=== PATIENT | female | born 1960 | race African-American/Black ===

== ENCOUNTER 2018-11-25 12:08 | Inpatient (IN) ==
[2018-11-25] MEDS ORDERED: DILAUDID IV ONE (16:15)
[2018-11-25 16:22] LABS: EOS# 0.01 X1000 (0.0-0.7); EOS% 0.1 % (0.0-10.0); HEMOGLOBIN 11.2 g/dL (12.0-16.0); LYMPH# 0.45 X1000 (1.2-3.4); LYMPH% 5.8 % (20.5-51.1); MCH 32.9 PG (27-31); MCHC 31.1 g/dL (33-37); MCV 105.9 FL (81-99); MONO# 0.44 X1000 (0.11-0.59); MONO% 5.7 % (1.7-9.3); MPV 8.8 FL (7.4-10.4); NEUT# 6.82 X1000 (1.4-6.5); NEUT% 88.4 % (42.2-75.2); PLT 185 X1000 (130-400); RDW 17.9 % (11.5-14.5); WBC 7.72 X1000 (4.8-10.8)
[2018-11-25 16:26] LABS: INR 0.94; PROTIME 13.3 Seconds (11.0-16.0)
--- NOTE | 2018-11-25 16:30 | EKG Report ---
Test Performed on : 11/25/2018 4:24:44 PM Test Reason : chest pain Blood Pressure : / mmHG Vent. Rate : 083 BPM Atrial Rate : 083 BPM P-R Int : 154 ms QRS Dur : 064 ms QT Int : 338 ms P-R-T Axes : 053 -05 005 degrees QTc Int : 397 ms Normal sinus rhythm. ST & T wave abnormality, consider anterior ischemia Abnormal ECG When compared with ECG of 04-OCT-2018 10:11, (Unconfirmed) No significant change was found Unconfirmed Result
[2018-11-25 16:31] LABS: AGAP 10; ALB/GLOB RATIO 1.1; ALBUMIN 3.8 g/dL (3.5-5.0); ALKALINE PHOSPHATASE 132 U/L (32-104); BUN 10 mg/dL (8-22); CHLORIDE 93 mmol/L (98-107); COSMO 263; CREATININE 0.4 mg/dL (0.5-0.9); ESTIMATED GFR > 60; GLUCOSE 88 mg/dL (70-104); GOT 40 U/L (10-30); GPT 225 U/L (10-36); MAGNESIUM 1.6 mg/dL (1.5-2.7); POTASSIUM 4.2 mmol/L (3.5-5.1); SODIUM 132 mmol/L (136-145); TCO2 29 mmol/L (25-35); TOTAL BILIRUBIN 0.58 mg/dL (0.20-1.00); TOTAL PROTEIN 7.4 g/dL (6.3-8.3)
[2018-11-25] MEDS ORDERED: NARCAN IV PRN (16:31)
[2018-11-25] MEDS ORDERED: DILAUDID PCA VIAL IV PRN (16:31)
[2018-11-25 16:32] LABS: CK PROFILE 285 U/L (24-173)
[2018-11-25] MEDS ORDERED: DILAUDID-HP 30 MG in NS 27 ML IV PRN ×2 (16:37→18:15)
[2018-11-25] MEDS ORDERED: LR 1,000 ML IV SCH (16:45)
--- NOTE | 2018-11-25 16:46 | Diag Imaging Result Doc PS360 ---
EXAM: CHEST-PORTABLE INDICATION: chest pain TECHNIQUE: One view COMPARISON: 10/04/2018 FINDINGS: Right chest port is in stable position. There is a fairly large left pleural fluid collection that was also seen on the previous study. It has probably increased slightly in size. There is atelectasis and/or infiltrate at the left lung base. The right lung is clear. Cardiac silhouette is unremarkable. IMPRESSION: Fairly large left pleural effusion with adjacent atelectasis and/or infiltrate that appears increased slightly in size during the interval. Electronically signed by Ricky Chavez 11/25/2018 4:43 PM
[2018-11-25 16:49] LABS: CK INDEX 1.2 (0.0-2.5); CK-MB 3.33 ng/mL (0.0-5.0)
[2018-11-25] MEDS ORDERED: LOVENOX SUBQ SCH (17:00)
[2018-11-25 17:01] LABS: BANDS 1 % (0-1); LYMPHS 6 % (21-51); MONO 6 % (1-9); SEGS 86 % (42-75)
[2018-11-25 17:02] LABS: ANISOCYTOSIS 2+
--- NOTE | 2018-11-25 17:13 | HISTORY AND PHYSICAL ---
PRIMARY CARE PROVIDER: None. ONCOLOGIST: Sofiya Page MD CHIEF COMPLAINT: Back and flank pain. HISTORY OF PRESENT ILLNESS: Ms. Lee is a 58-year-old female with a history of metastatic breast cancer with lung and brain involvement who recently completed whole brain radiation this morning. She comes to us directly from Dr. Page's office for intractable pain, she is experiencing left flank, left anterior chest, and left-sided back pain as well. She denies any cough. No fever. She is having some mild epigastric discomfort as well. She has not had any vomiting or diarrhea. She is complaining of left leg swelling but no pain. She is in obvious distress so we are going to give her 2 mg of Dilaudid IV now and start a MINIBUS DRIVER pump while diagnostics are pending. PAST MEDICAL HISTORY: 1. Metastatic breast cancer with lung and brain involvement, status post whole brain radiation this morning. 2. Hypertension. 3. Diabetes mellitus. 4. Chronic pain. SURGICAL HISTORY: She has had a hysterectomy and bilateral mastectomy. SOCIAL HISTORY: No tobacco, alcohol, or drug use. She is . Her is at the bedside. FAMILY HISTORY: Noncontributory. REVIEW OF SYSTEMS: A 14 point review of systems was obtained and found to be negative with the exception of the HPI. HOME MEDICATIONS: Home medications are yet to be compiled. ALLERGIES: No known drug allergies. PHYSICAL EXAMINATION: VITAL SIGNS: Blood pressure is 118/65. Heart rate is not recorded. GENERAL: This is a well-developed, well-nourished, female lying in a hospital bed in [id number] distress. NEUROLOGIC: She is awake, alert, and oriented. She follows commands without focal deficits. HEENT: The head is atraumatic and normocephalic. Her pupils are equal, round, and reactive to light. Oral mucosa is dry. NECK: Trachea is midline. There is no JVD. CHEST: Clear to auscultation with equal lung excursion bilaterally. CV: Regular rate and rhythm. S1, S2 is noted. No appreciable murmurs. GI: Mild epigastric tenderness to palpation but overall her abdomen is soft and nondistended. Bowel sounds are hypoactive. EXTREMITIES: Left lower extremity with trace edema. Both lower extremities with palpable pulses. DIAGNOSTIC DATA: Pending. ASSESSMENT AND PLAN: 1. Intractable chest and back pain: Likely secondary to malignancy, however, we will need to rule out cardiac disease or pulmonary disease as well. We will check cardiac enzymes and a full set of labs, EKG, chest x-ray, and, with her symptoms of chest pain and left lower leg swelling we will need to rule out the possibility of pulmonary thromboembolism. We have ordered a D-dimer and lower extremity ultrasound. We will re-evaluate after labs have returned and consider CTA of the chest to rule out PE. An echocardiogram was done in August and EF was 59%. We are going to start a MINIBUS DRIVER pump with Dilaudid and give her 2 mg IV now. 2. Hypertension: We will continue appropriate medications once compiled. 3. Diabetes mellitus: We will check a hemoglobin A1c and add pattern sugar sliding scale insulin. 4. Deep vein thrombosis prophylaxis with Lovenox. 5. Metastatic breast cancer: Aware. Dr. Page has been consulted. Further recommendations to follow. Dictated by DEVON Lopez for Patrice Reddy MD cc: DEVON Lopez MD [facility]
[2018-11-25] MEDS ORDERED: ZOFRAN PO PRN (18:07)
[2018-11-25] MEDS ORDERED: EMLA CREAM TOP PRN (18:07)
[2018-11-25 18:12] LABS: CK INDEX 1.1 (0.0-2.5); CK-MB 2.98 ng/mL (0.0-5.0)
--- NOTE | 2018-11-25 18:19 | HISTORY AND PHYSICAL ---
ADDENDUM ON THE HISTORY AND PHYSICAL: HISTORY: The patient seen and examined by me [id number]. All the laboratory, vital signs were reviewed, as well as images. Chest x-ray showed a large left pleural effusion with atelectasis and/or infiltrate that appears increased slightly in size during the interval. The right lung is clear. Cardiac silhouette is unremarkable. This patient is complaining of pain especially on the left side of the chest. LABS: Laboratory showed some anemia with hemoglobin of 11.2, platelet count 185. D-dimer is elevated at 3.53. Sodium level 132, potassium 4.2, chloride 93, bicarbonate 28, BUN is 10, creatinine 0.4. She does have elevated LFTs with an AST of 40, ALT 225 and alkaline phosphatase 132 with a CK level of 285, which is elevated compared with 2 months ago. I am not quite sure if this is related to chemotherapy or any other treatment. There is not an official report, but it looks like she has a DVT on the left lower extremity. I will try to talk to Dr. Sofiya Page, which is her instrumentation controls engineer-oncologist, to see if we are going to be able to start anticoagulation on this patient. She has no other complaints than left sided chest pain and left lower extremity discomfort/pain at the level of the calf. PHYSICAL EXAM: CHEST/LUNGS: Showed some crepitus at the bases bilaterally mostly on the left side. Bilateral mastectomy. EXTREMITIES: A little bit of swelling at the level of the left lower extremity, normal right lower extremity. ABDOMEN: Soft, nontender, nondistended. No hepatosplenomegaly. NEUROLOGICAL: The patient is alert and oriented x3. No focal deficits. PLAN: The plan is to control the pain and this is why she has been admitted. D-dimer is elevated, probably likely this patient has a DVT and probably a PE as well. Since she has a positive Doppler venous ultrasound at the level of the lower extremities, I will hold the CT angiogram since the treatment is going to be basically the same. She has been placed on a URBAN DESIGNER pump and some of her home medications. I agree with the rest of the nurse practitioner's assessment and plan. cc: Patrice Reddy MD
[2018-11-25] MEDS: NEURONTIN PO SCH (22:08)
[2018-11-25] MEDS: LOVENOX SUBQ SCH (22:09)
[2018-11-26 02:24] LABS: CK INDEX 0.6 (0.0-2.5); CK-MB 2.12 ng/mL (0.0-5.0)
[2018-11-26 07:32] LABS: EOS# 0.05 X1000 (0.0-0.7); EOS% 0.7 % (0.0-10.0); HEMATOCRIT 35.1 % (37.0-47.0); IMM GRAN# 0.03 X1000 (0.0-0.04); IMM GRAN% 0.4 % (0.0-0.5); LYMPH# 0.25 X1000 (1.2-3.4); LYMPH% 3.7 % (20.5-51.1); MCH 32.4 PG (27-31); MCHC 31.3 g/dL (33-37); MCV 103.5 FL (81-99); MONO# 0.43 X1000 (0.11-0.59); MONO% 6.3 % (1.7-9.3); NEUT# 6.02 X1000 (1.4-6.5); NEUT% 88.9 % (42.2-75.2); PLT 194 X1000 (130-400); RBC 3.39 XMIL (4.2-5.4); RDW 18.1 % (11.5-14.5); WBC 6.78 X1000 (4.8-10.8)
[2018-11-26] MEDS: LOVENOX SUBQ SCH ×2 (08:18→21:05)
[2018-11-26] MEDS: NORVASC PO SCH (08:18)
[2018-11-26 08:20] LABS: ESTIMATED GFR > 60
[2018-11-26 08:22] LABS: AGAP 11; ALBUMIN 3.2 g/dL (3.5-5.0); ALKALINE PHOSPHATASE 125 U/L (32-104); BUN 10 mg/dL (8-22); CHLORIDE 88 mmol/L (98-107); COSMO 252; CREATININE 0.4 mg/dL (0.5-0.9); GLUCOSE 92 mg/dL (70-104); GOT 49 U/L (10-30); GPT 299 U/L (10-36); POTASSIUM 4.2 mmol/L (3.5-5.1); SODIUM 126 mmol/L (136-145); TCO2 27 mmol/L (25-35); TOTAL PROTEIN 6.5 g/dL (6.3-8.3)
[2018-11-26 08:36] LABS: HEMOGLOBIN A1C 5.4 % (4.8-6.0)
[2018-11-26] MEDS: BIOTIN PO SCH (08:58)
[2018-11-26] MEDS ORDERED: DILAUDID-HP 30 MG in NS 27 ML IV PRN ×2 (09:39→10:33)
[2018-11-26 10:06] LABS: CK INDEX 0.3 (0.0-2.5); CK-MB 1.47 ng/mL (0.0-5.0)
[2018-11-26] MEDS: MS CONTIN PO SCH ×4 (12:38→21:07)
--- NOTE | 2018-11-26 13:01 | PROGRESS NOTE ---
DATE: 11/26/2018 SUBJECTIVE: At this moment, this patient is sleeping. As per the who is at the bedside, she has spent most of the night awake because of the pain. She has been evaluated by Hematology/Oncology Department, who recommended to do an ultrasound-guided thoracentesis; that will be performed in the morning tomorrow because she received a dose of Lovenox today. Hematology/Oncology Department added some medication by mouth as well, which I agree. OBJECTIVE: Vital Signs: Temperature 99.2 degrees, pulse 92, respiratory rate 18, blood pressure 105/69, oxygen saturation 97% on room air. HEENT: Head normocephalic. No trauma. PERRLA. Neck: Supple. No JVD. No masses. Central trachea. Chest: Decreased breath sounds on the left side with some crackles. Crepitus at the bases bilaterally. Abdomen: Soft, nontender, nondistended. No hepatosplenomegaly. Extremities: Left lower extremity 1+ to 2+. No clubbing. No cyanosis. Neurological examination: At this moment, this patient is sleeping. As per the , no changes compared with yesterday. LABORATORY: WBC 6.7, hemoglobin 11, hematocrit 35.1, platelets 194. Sodium 126, potassium 4.2, chloride 188, bicarbonate 27. BUN 10, creatinine 0.4, glucose 92, calcium 8. AST 49, ALT 229, alkaline phosphatase 125. CK level 442. Troponins negative x3. Albumin 3.2. Folate 6.9. ASSESSMENT AND PLAN: 1. Intractable chest pain and back pain, probably secondary to malignancy and/or pulmonary embolism. She has been placed on a VETERANS CONTACT REPRESENTATIVE pump. We will continue with the same management. She seems to be doing better. 2. Left lower extremity deep vein thrombosis. We will continue with Lovenox twice a day. Will hold the Lovenox tomorrow morning because we will do a thoracentesis. 3. Left-sided pulmonary edema. It is scheduled to get a thoracentesis done tomorrow morning. We will monitor. 4. Hypertension, stable. 5. Type 2 diabetes. Hemoglobin A1c is 5.4. We will continue with same management. 6. Elevated liver function tests. I am not quite sure why the liver function tests are elevated. I am not sure if this patient has metastasis to the liver and/or is an adverse reaction to recent chemotherapy. 7. Hyponatremia. I have switched the intravenous fluids to normal saline with D 5. As per the , this patient is not eating too much, almost nothing. 8. Folic acid deficiency. I have placed this patient on folic acid. 9. Metastatic breast cancer. It looks like she has metastases also to the brain. Her last radiotherapy was done yesterday. cc: Patrice Reddy MD
[2018-11-26] MEDS: DILAUDID PO PRN (14:11)
[2018-11-26] MEDS ORDERED: TYLENOL PO PRN (15:19)
[2018-11-26] MEDS: NEURONTIN PO SCH (21:07)
--- NOTE | 2018-11-26 21:37 | Extremity Venous Study ---
PROCEDURE NAME: Venous U/S Left Leg - 11/25/2018 STUDY: Left lower extremity venous duplex study. REFERRING PHYSICIAN: Patrice Reddy MD. READING PHYSICIAN: Calvin Gleason MD. SOIL TECHNICIAN: Lay Kingston RVT. INDICATION: Left leg swelling and history of metastatic breast cancer. FINDINGS: The left common femoral, deep femoral, superficial femoral, greater saphenous, popliteal, and posterior tibial veins were imaged. They are compressible and patent without thrombus. However, the left peroneal vein is thrombosed from the proximal to distal calf. INTERPRETATION: Acute DVT of the left peroneal vein. cc: MD Albert Mcintosh CRNP
[2018-11-27] MEDS: LR 1,000 ML ONE ×2 (00:13→00:14)
--- NOTE | 2018-11-27 07:44 | Diag Imaging Result Doc PS360 ---
EXAM: US CHEST W/O MEDIASTINUM(LTD) HISTORY: Left pleural effusion TECHNIQUE: Left chest ultrasound COMPARISON: 05/06/2018 FINDINGS: Previously there was a large left-sided pleural effusion. There is only a tiny loculated fluid collection on the current exam. IMPRESSION: Thoracentesis not performed due to the small size of the loculated left fluid collection Electronically signed by Prince Rodriguez 11/27/2018 7:42 AM
[2018-11-27] MEDS: FOLIC ACID PO SCH (08:32)
[2018-11-27] MEDS: MS CONTIN PO SCH ×8 (08:32→18:25)
[2018-11-27] MEDS: NORVASC PO SCH (08:32)
[2018-11-27] MEDS: LOVENOX SUBQ SCH ×2 (08:33→20:09)
[2018-11-27] MEDS: BIOTIN PO SCH (08:33)
[2018-11-27 09:43] LABS: ESTIMATED GFR > 60
[2018-11-27 09:49] LABS: AGAP 11; ALKALINE PHOSPHATASE 137 U/L (32-104); BUN 7 mg/dL (8-22); CALCIUM 8.5 mg/dL (8.8-10.2); CHLORIDE 85 mmol/L (98-107); COSMO 247; CREATININE 0.5 mg/dL (0.5-0.9); GLUCOSE 82 mg/dL (70-104); GOT 65 U/L (10-30); GPT 480 U/L (10-36); MAGNESIUM 1.6 mg/dL (1.5-2.7); POTASSIUM 4.3 mmol/L (3.5-5.1); SODIUM 124 mmol/L (136-145); TCO2 28 mmol/L (25-35); TOTAL BILIRUBIN 1.98 mg/dL (0.20-1.00); TOTAL PROTEIN 5.9 g/dL (6.3-8.3)
[2018-11-27 10:25] LABS: EOS# 0.01 X1000 (0.0-0.7); EOS% 0.1 % (0.0-10.0); HEMATOCRIT 35.4 % (37.0-47.0); HEMOGLOBIN 11.5 g/dL (12.0-16.0); IMM GRAN# 0.02 X1000 (0.0-0.04); IMM GRAN% 0.2 % (0.0-0.5); LYMPH# 0.21 X1000 (1.2-3.4); LYMPH% 2.3 % (20.5-51.1); MCHC 32.5 g/dL (33-37); MCV 101.7 FL (81-99); MONO# 0.36 X1000 (0.11-0.59); MONO% 3.9 % (1.7-9.3); MPV 8.9 FL (7.4-10.4); NEUT# 8.55 X1000 (1.4-6.5); NEUT% 93.5 % (42.2-75.2); PLT 184 X1000 (130-400); RBC 3.48 XMIL (4.2-5.4); RDW 17.4 % (11.5-14.5); WBC 9.15 X1000 (4.8-10.8)
[2018-11-27 11:27] LABS: LYMPHS 4 % (21-51); MONO 2 % (1-9); SEGS 94 % (42-75)
--- NOTE | 2018-11-27 16:18 | PROGRESS NOTE ---
DATE: 11/27/2018 SUBJECTIVE: This patient seems to be doing a little bit better, the pain is better controlled, she is still hyponatremic and she is still having elevated LFTs. Since this patient is full code I will ask gastroenterology department to evaluate this patient even though the LFTs are likely related to the disease progression, it looks like Hematology Oncology Department started to recommend hospice for this patient, I will continue with pain control and monitoring this patient closely. OBJECTIVE: Temperature 100.7, pulse 123, respiratory rate 18, blood pressure 121/58, oxygen saturation 94 on room air.HEENT: Head normocephalic. No trauma. PERRLA. Neck: Supple. No JVD. No masses. Central trachea. Chest: Decreased breath sounds on the left side with some crackles, crepitus at the bases bilaterally. Abdomen: Soft, nontender, nondistended. Extremities: Left lower extremity 1+ edema. No clubbing. No cyanosis. Neurologic: The patient is alert, she is oriented x3. LABORATORY: WBC 9.1, hemoglobin 11.5, hematocrit 35.4, platelets 184,000, sodium 124, potassium 4.3, chloride 85, bicarbonate 28, BUN 7, creatinine 0.5, glucose 82, calcium 8.5, magnesium 1.6, AST 65, ALT 480, alkaline phosphatase 137, albumin 3. ASSESSMENT AND PLAN: 1. Intractable pain likely secondary to malignancy, mostly on her chest on the left side, she has been placed on a TEST TUBE MAKER pump and also Hematology/Oncology Department has recommended some p.o. treatment for this, she seems to be doing better. 2. Left lower extremity deep vein thrombosis. Continue with anticoagulation. 3. Left-sided pulmonary edema, she has been scheduled to get a thoracentesis today but since this is a small loculated fluid collection the thoracentesis was not performed. 4. Hypertension stable. 5. Type 2 diabetes. Continue with same management. 6. Elevated liver function tests likely secondary to disease progression. 7. Hyponatremia, this is probably secondary to syndrome of inappropriate antidiuretic hormone secretion, will continue with same management. 8. Folic acid deficiency. Continue to replace. 9. Metastatic breast cancer, it looks like she has metastasis to the brain. Last radiotherapy was done a couple days ago. Hematology/Oncology on board. cc: Patrice Reddy MD
--- NOTE | 2018-11-27 17:39 | Diag Imaging Result Doc PS360 ---
US ABDOMEN-COMPLETE - 11/27/2018 INDICATION: abnormal LFTs COMPARISON: PET scan 07/08/2018 FINDINGS: The exam is challenging due to extensive bowel gas. The liver is grossly normal. There is some sludge and several small stones in the gallbladder. No gallbladder inflammation. Common bile duct measures 4 mm. No biliary dilation. The pancreas is obscured. The spleen and both kidneys are normal. Aorta, IVC, and main portal vein are patent. No significant free fluid. IMPRESSION: Sludge and small gallstones in the gallbladder. Electronically signed by Basil Coyle 11/27/2018 5:36 PM
--- NOTE | 2018-11-27 21:14 | GASTROENTEROLOGY CONSULTATION ---
DATE: 11/27/2018 REASON FOR CONSULTATION: Abnormal LFTs. HISTORY OF PRESENT ILLNESS: Ms. Kiya Lee is a 58-year-old woman with a past medical history significant for metastatic breast cancer with brain and lung involvement who was admitted with intractable left flank, chest and upper quadrant pain. GI was consulted for worsening abnormal LFTs. The patient reports having received 2 cycles of Xeloda and Ixempra. Her last infusion was in September 2018. This was discontinued secondary to diagnosis of brain metastases for which she is undergoing whole-brain radiation and receiving steroids. History is primarily obtained from the chart and the patient's , given the patient is lethargic while being on a SOURCING MANAGER pump. Per report, she has not been on any recent antibiotics. Does not take any herbals or supplements. Has no history of liver disease and has not been complaining of any right upper quadrant pain. No history of jaundice, abdominal distention, or hepatic encephalopathy. Reviewing her labs, she has had a rising AST and ALT over the last 2 months. She has no history of alcohol use. PAST MEDICAL HISTORY: Metastatic breast cancer with brain and lung involvement. Hypertension, diabetes, chronic pain, recent diagnosis of DVT. PAST SURGICAL HISTORY: Hysterectomy, bilateral mastectomy. SOCIAL HISTORY: No alcohol, smoking or drug use. She is . FAMILY HISTORY: No family history of liver disease or cirrhosis. MEDICATIONS: Bisoprolol/hydrochlorothiazide combination. Norvasc. Metformin, gabapentin, Zofran, morphine extended release, biotin, morphine immediate release. No Tylenol. ALLERGIES: No known drug allergies. REVIEW OF SYSTEMS: Unable to obtain given patient's lethargy. PHYSICAL EXAMINATION: Vital Signs: Temperature 100.7 currently. Pulse 123, respiratory rate 18, blood pressure 121/58, O2 saturation of 94% on room air. Generally: Patient is lethargic, arousable, but not conversant. HEENT: Sclerae anicteric. Moist mucous membranes. Neck: No JVD. No lymphadenopathy. Cardiac: Tachycardic, regular. No murmurs. Lungs: Clear to auscultation bilaterally. Abdomen: Soft, nondistended. The patient has some tenderness in the left flank and upper quadrant. No right upper quadrant pain. Bowel sounds are present. No ascites. Extremities: No clubbing, cyanosis, or edema. Neurologic: The patient is moving all extremities spontaneously. LABS: White count of 9.15, hemoglobin 11.5, MCV is 101.7, platelets of 184,000, 94% neutrophils. Sodium of 124, potassium of 4.3, chloride of 85, BUN is 7, creatinine 0.5, glucose is 82. Calcium 8.5, total bilirubin of 1.98, AST 65, ALT of 480, alkaline phosphatase of 137. CK of 442. Troponin negative x2. Total protein of 5.9, albumin 3.0. Folate is 6.9, vitamin B12 of 730. PET scan in August did not show any evidence of hepatic lesions. Chest x-ray on 11/25 showed fairly large left pleural effusion with adjacent atelectasis and/or infiltrate that appears increased slightly in size during the interval from September. The patient has acute DVT in the left peroneal vein seen on Doppler ultrasound. Chest ultrasound shows a tiny, loculated fluid collection on the left side. Thoracentesis could not be performed due to the small size. Blood cultures x2 are pending. Urine culture is pending. ASSESSMENT AND PLAN: Ms. Kiya Lee is a 58-year-old woman, with past medical history significant for metastatic breast cancer with brain and lung involvement who has undergone 2 cycles of Xeloda and Ixempra. That was discontinued in September in the setting of recent diagnosis of brain metastasis She has been undergoing whole-brain radiation. She was admitted secondary to uncontrolled acute on chronic left upper quadrant chest wall and flank pain. Gastroenterology was consulted for worsening liver function tests that appears to be hepatocellular pattern with ALT greater than AST. She does have some mildly increasing alkaline phosphatase and total bilirubin. No recent abdominal imaging. PET scan in August did not show any evidence of hepatic metastases. Reviewing the literature on Ixempra and Xeloda, there are some rare cases of liver injury, although occurrences are rare. Xeloda typically shows a more cholestatic picture, whereas Ixempra has a more hepatocellular pattern. No occurrences of acute liver failure seem to have been reported with these medications. She has not received any obvious hepatotoxic agents since admission. She has been on steroids, I believe are for her brain mets. # Abnormal LFTs: we will check an acute hepatitis panel, ZURI, antismooth muscle antibody to evaluate for autoimmune hepatitis. This is unlikely Kaushal's or hemochromatosis given new onset. It does appear that her LFTs have been slowly climbing since September and this may represent sort of interval progression since then. I have also ordered an abdominal ultrasound to evaluate for any bilirubin obstruction, liver lesions, gallstones. There is no evidence of acute liver failure here. We will avoid hepatotoxic agents and dose adjust her medications for hepatic dysfunction. Continue to trend her LFTs once daily. # Left upper quadrant pain: I think this is unlikely related to her abnormal LFTs. This has been a chronic issue related to her underlying breast cancer. Will defer management to primary team. # She has significant hyponatremia. She appears to be normal volemic, question SIADH in the setting of possible infection. Patient was febrile this afternoon. Other etiologies include hypovolemic hyponatremia. Defer management to primary team. # Folate deficiency. Recommend repleting with folic acid. # Left pleural effusion. Appears to have a small loculation. Could be source of her underlying fever. Thoracentesis could not be performed given the small volume. # Deep vein thrombosis. She is currently on therapeutic Lovenox. # Metastatic breast cancer. Oncology following Thank you for this consult. We will follow with you. Please call with any questions or concerns. [facility]
[2018-11-27] MEDS: NEURONTIN PO SCH (22:58)
[2018-11-28] MEDS: MS CONTIN PO SCH ×6 (01:33→17:45)
[2018-11-28 07:05] LABS: EOS# 0.06 X1000 (0.0-0.7); EOS% 0.6 % (0.0-10.0); HEMATOCRIT 34.2 % (37.0-47.0); HEMOGLOBIN 11.1 g/dL (12.0-16.0); IMM GRAN# 0.03 X1000 (0.0-0.04); IMM GRAN% 0.3 % (0.0-0.5); LYMPH# 0.29 X1000 (1.2-3.4); LYMPH% 2.8 % (20.5-51.1); MCH 32.9 PG (27-31); MCHC 32.5 g/dL (33-37); MCV 101.5 FL (81-99); MONO# 0.57 X1000 (0.11-0.59); MONO% 5.4 % (1.7-9.3); MPV 8.7 FL (7.4-10.4); NEUT# 9.56 X1000 (1.4-6.5); NEUT% 90.9 % (42.2-75.2); PLT 179 X1000 (130-400); RBC 3.37 XMIL (4.2-5.4); RDW 17.1 % (11.5-14.5); WBC 10.51 X1000 (4.8-10.8)
[2018-11-28 07:17] LABS: LYMPHS 2 % (21-51); MONO 6 % (1-9); SEGS 92 % (42-75)
[2018-11-28 07:19] LABS: AGAP 12; ALB/GLOB RATIO 0.7; ALBUMIN 2.5 g/dL (3.5-5.0); ALKALINE PHOSPHATASE 162 U/L (32-104); BUN 7 mg/dL (8-22); CALCIUM 8.5 mg/dL (8.8-10.2); CHLORIDE 90 mmol/L (98-107); COSMO 252; CREATININE 0.4 mg/dL (0.5-0.9); ESTIMATED GFR > 60; GLUCOSE 80 mg/dL (70-104); GOT 78 U/L (10-30); GPT 519 U/L (10-36); POTASSIUM 4.1 mmol/L (3.5-5.1); SODIUM 127 mmol/L (136-145); TCO2 25 mmol/L (25-35); TOTAL PROTEIN 5.9 g/dL (6.3-8.3)
[2018-11-28] MEDS: FOLIC ACID PO SCH (09:32)
[2018-11-28] MEDS: NORVASC PO SCH (09:32)
[2018-11-28] MEDS: LOVENOX SUBQ SCH ×2 (09:33→21:06)
[2018-11-28] MEDS: MIRALAX PO SCH ×2 (09:37→21:05)
[2018-11-28] MEDS: PROTONIX IV SCH ×2 (09:38→21:06)
[2018-11-28] MEDS: BIOTIN PO SCH (10:57)
[2018-11-28] MEDS: DULCOLAX PR SCH ×2 (14:04→21:06)
--- NOTE | 2018-11-28 14:37 | PROGRESS NOTE ---
DATE: 11/28/2018 SUBJECTIVE: The pain is better controlled. She is still hyponatremic. LFTs are trending up, I had a conversation with the which is at the bedside. It looks like they talk already with Hematology/Oncology Department yesterday, I have consulted hospice care to talk to them. Depending on their decision I will discharge this patient the next 24 to 48 hours. OBJECTIVE: Vital Signs: Temperature 99.6 degrees, pulse 118, respiratory rate 20, blood pressure 97/58, oxygen saturation 94 on room air. HEENT: Head normocephalic. No trauma. PERRLA. Neck: Supple. No JVD. No masses. Central trachea. Chest: Decreased breath sounds on the left side with some crackles, crepitus at the bases bilaterally. Abdomen: Soft, nontender, nondistended. Extremities: 1+ lower extremity edema. No clubbing, no cyanosis. Neurological: The patient is sleepy but arousable, oriented x3. Able to recognize family members at the bedside. LABORATORY: WBC 10.5, hemoglobin 11.1, hematocrit 34.2, platelet 179,000, sodium 127, potassium 4.1, chloride 90, bicarbonate 25, BUN 7, creatinine 0.4, glucose 80, calcium 8.5, bilirubin 2.3, AST 78, ALT 519, alkaline phosphatase 162. ASSESSMENT AND PLAN: 1. Intractable pain likely secondary to malignancy, mostly on the left side of the chest. We will continue with the ENTRY ENGINEER pump. Hematology/Oncology on board. 2. Left lower extremity deep vein thrombosis, continue with anticoagulation. 3. Left-sided pulmonary edema, she has been scheduled to get a thoracentesis yesterday but since this fluid is small and loculated the thoracentesis was not performed. 4. Hypertension stable. 5. Type 2 diabetes. Continue with same management. 6. Elevated liver function tests, this is getting worse slowly, probably related to her disease progression. Gastroenterology Department on board. 7. Hyponatremia likely secondary to syndrome of inappropriate antidiuretic hormone secretion, we will monitor for now. 8. Folic acid deficiency. Continue to replace. 9. Metastatic breast cancer with metastasis to the brain, last cryotherapy was done 3 days ago. Hematology/Oncology on board. cc: Patrice Reddy MD
[2018-11-28] MEDS ORDERED: LR 1,000 ML ONE (18:36)
[2018-11-28] MEDS: DILAUDID-HP 30 MG in NS 27 ML IV PRN (18:37)
[2018-11-28] MEDS: SODIUM CHLORIDE 0.9% INJ SCH (21:06)
[2018-11-28] MEDS: NEURONTIN PO SCH (21:06)
--- NOTE | 2018-11-28 21:07 | GASTROENTEROLOGY PROGRESS NOTE ---
DATE: 11/28/2018 SUBJECTIVE: Patient resting in bed. She complains abdominal pain. She is on a JAVA WEB DEVELOPER. Abdominal pain is improved but she grades the pain 7 to 8/10. She has not had bowel movement in 3 days. Her liver enzymes were elevated and they are trending up. VITALS: Temperature 98.6, pulse 120, respiratory 18, blood pressure 96/53, saturating 92% room air, body weight of 186 pounds 1 ounce, BMI of 26 kg meter. General appearance: Moderate built moderate lying in bed in no acute distress. HEENT: Mild pallor, mild icterus. Neck: Supple. Abdomen: Is distended, tympanic portion rebound no rebound or guarding, discomfort in the pelvic region and right upper quadrant . Extremities: No cyanosis, clubbing. Neuro: She is alert, awake, oriented. LAB: Her hemoglobin and hematocrit is 11.1, 34.2, white count of 10.51, platelet count of 179,000, sodium 127, potassium 4.1, chloride 90, bicarb 20, anion gap 12, BUN of 7 , creatinine 0.4, glucose of 80, calcium is 8.5, total bilirubin is 2.30, AST 878, ALT 519, alkaline phosphatase is 160, total protein is 5.9, albumin of 2.5. Her chronic liver disease workup has been ordered is currently pending. Blood culture x2 negative 48 hours, urine culture also negative on admission, her abdominal ultrasound done yesterday showed sludge and small stones in the gallbladder, common bile duct measuring 4 mm. 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 IMPRESSION AND PLAN: 1. Elevated liver enzymes, continue watch for now. Will continue follow on the liver enzymes, will avoid hepatotoxic drugs, will follow up on the chronic liver disease workup. 2. Constipation. Will start on MiraLAX twice daily and Dulcolax twice daily. 3. Pain in the left upper quadrant could be from the chest wall invasion by the tumor. She is on JAVA WEB DEVELOPER . 4. Gastrointestinal prophylaxis PPIs. 5. Metastatic breast cancer with brain and lung involvement currently on treatment with Xeloda, Ixempra, she has also received whole-brain radiation. Will continue tract liver enzymes for now and continue to follow closely. 6. Deep vein thrombosis prophylaxis Lovenox. 7. Mild anemia. Continue watch for now. 8. The above plans with the patient and the family at bedside and all questions answered. Please call us with any questions. cc: Patrice Reddy MD MTDD
[2018-11-28] MEDS: DILAUDID PO PRN (21:22)
[2018-11-29] MEDS: MS CONTIN PO SCH ×6 (03:59→18:14)
[2018-11-29 08:16] LABS: AGAP 12; ALB/GLOB RATIO 0.7; ALBUMIN 2.6 g/dL (3.5-5.0); ALKALINE PHOSPHATASE 174 U/L (32-104); BUN 8 mg/dL (8-22); CALCIUM 8.2 mg/dL (8.8-10.2); CHLORIDE 87 mmol/L (98-107); COSMO 255; CREATININE 0.5 mg/dL (0.5-0.9); ESTIMATED GFR > 60; GLUCOSE 157 mg/dL (70-104); GOT 52 U/L (10-30); GPT 445 U/L (10-36); SODIUM 126 mmol/L (136-145); TCO2 27 mmol/L (25-35); TOTAL BILIRUBIN 1.67 mg/dL (0.20-1.00); TOTAL PROTEIN 6.3 g/dL (6.3-8.3)
[2018-11-29 08:44] LABS: HEPATITIS PROFILE ACUTE SEE COMMENTS
[2018-11-29] MEDS: BIOTIN PO SCH (09:13)
[2018-11-29] MEDS: MIRALAX PO SCH ×2 (09:14→22:42)
[2018-11-29] MEDS: FOLIC ACID PO SCH (09:14)
[2018-11-29] MEDS: NORVASC PO SCH (09:14)
[2018-11-29] MEDS: SODIUM CHLORIDE 0.9% INJ SCH ×2 (09:15→22:43)
[2018-11-29] MEDS: LOVENOX SUBQ SCH ×2 (09:15→22:43)
[2018-11-29] MEDS: PROTONIX IV SCH ×2 (09:15→22:42)
[2018-11-29] MEDS: DULCOLAX PR SCH ×3 (13:33→22:42)
[2018-11-29] MEDS: DILAUDID PO PRN (14:44)
--- NOTE | 2018-11-29 15:14 | PROGRESS NOTE ---
DATE: 11/29/2018 SUBJECTIVE: No acute events overnight, I believe the family met yesterday with hospice, they will meet together between today and tomorrow to decide if this patient will go home with hospice or they will continue with treatment, I will continue with the same management. She seems to be stable. OBJECTIVE: Vital Signs: Temperature 99.8 degrees, pulse 108, respiratory rate 18, blood pressure 97/52, oxygen saturation 91 on room air. HEENT: Head normocephalic. No trauma. PERRLA. Neck: Supple. No JVD. Central trachea. Chest: Decreased breath sounds on the left side with some crackles, crepitus at the bases bilaterally. Abdomen: Soft, nontender, nondistended. No hepatosplenomegaly. Extremities: 1+ lower extremity edema. No clubbing, no cyanosis. Neurologic: The patient is sleepy but arousable. Oriented x3. She is following commands. LABORATORY: Sodium 126, potassium 4, chloride 87, bicarbonate 27, BUN 8, creatinine 0.5, glucose 157, calcium 8.2, bilirubin 1.6, AST 52, ALT 445, alkaline phosphatase 174. ASSESSMENT AND PLAN: 1. Intractable pain likely secondary to malignancy, mostly on the left side of the chest, will continue with the AIRBRUSH ARTIST TECHNICAL pump. Hematology/Oncology on board. 2. Left lower extremity deep vein thrombosis. Continue with anticoagulation. 3. Left-sided pulmonary edema, she was scheduled to get a thoracentesis but the fluid collection was small and loculated so the thoracentesis was not performed. 4. Hypertension stable. 5. Type 2 diabetes. Continue with same management. 6. Elevated liver function tests likely secondary to disease progression, compared with yesterday looks a little bit better. GI on board. 7. 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 8. Folic acid deficiency. Continue to replace. 9. Metastatic breast cancer with metastasis to the brain, last radiotherapy was done 4 days ago, Hematology/Oncology on board. 10. Left lower extremity deep vein thrombosis. Continue with anticoagulation. cc: Patrice Reddy MD
--- NOTE | 2018-11-29 16:57 | GASTROENTEROLOGY PROGRESS NOTE ---
DATE: 11/29/2018 SUBJECTIVE: She is resting in bed. She complains of pain in the left upper quadrant, which is secondary to tumor invasion in her rib cage. She moved her bowels with laxatives. Her liver enzymes have started trending down. OBJECTIVE: Vital signs: Temperature 99.8, pulse rate 108, respiratory rate 18, blood pressure 97/52, saturating 91% on room air. General Appearance: The patient is moderately built and moderately nourished, lying in bed, in mild distress because of abdominal pain. HEENT: Pale conjunctiva. Mild icterus. Neck: Supple. Abdomen: Discomfort in the left upper quadrant abdominal distention is improved. No guarding. Extremities: No cyanosis, clubbing. Neurologic: She is awake, alert, and answers simple questions. DIAGNOSTIC STUDIES: Yesterday, her hematocrit was 11.1 and hematocrit 34.2. Her sodium today is 126, potassium of 4, chloride of 87, bicarbonate 27, anion gap 12, BUN of 8, creatinine 0.5, glucose of 157, calcium is 8.2, total bilirubin is 1.67, AST 52, ALT 445, alkaline phosphatase 174, total protein 6.3, albumin of 2.6. Hepatitis panel is nonreactive. Blood culture x2 negative at 48 hours on 11/26/2018. IMPRESSION AND PLAN: 1. Elevated liver enzymes. They are trending down now. I suspect likely drug- induced liver injury from recent chemotherapy versus cholecystitis. The patient does have gallbladder sludge. Her hepatitis panel is nonreactive. We will follow up on the chronic liver disease workup. 2. Constipation is improving. Given MiraLAX and Dulcolax. 3. Pain in the left upper quadrant from chest invasion by the tumor. She will benefit from outpatient radiation to the area; her radiation oncologist is Dr. Pandey. We will request a possible consultation with Dr. Pandey so the patient has a set plan for pain relief as an outpatient. 4. Gastrointestinal (GI) prophylaxis. PPIs. 5. Metastatic breast cancer with brain and lung involvement. Currently being treated by the oncology team. 6. Deep vein thrombosis (DVT) prophylaxis. Lovenox. 7. Mild anemia. Continue to watch for now. The above plan of care was discussed with the patient and the family at bedside, and all questions were answered. Please call us with any further questions. cc: MD Patrice Marcial MD Heather Shah, MD Traci C. McCormick, MD MTDD
[2018-11-29] MEDS: NEURONTIN PO SCH (22:42)
[2018-11-30] MEDS: MS CONTIN PO SCH ×6 (02:04→18:26)
[2018-11-30] MEDS: LR 1,000 ML IV SCH (04:30)
[2018-11-30] MEDS: DILAUDID-HP 30 MG in NS 27 ML IV PRN (04:36)
[2018-11-30] MEDS: DILAUDID PO PRN (07:38)
[2018-11-30 08:16] LABS: ESTIMATED GFR > 60
[2018-11-30 08:41] LABS: AGAP 12; ALB/GLOB RATIO 0.7; ALBUMIN 2.7 g/dL (3.5-5.0); ALKALINE PHOSPHATASE 185 U/L (32-104); BUN 8 mg/dL (8-22); CALCIUM 8.4 mg/dL (8.8-10.2); CHLORIDE 88 mmol/L (98-107); COSMO 259; CREATININE 0.6 mg/dL (0.5-0.9); GLUCOSE 132 mg/dL (70-104); GOT 43 U/L (10-30); GPT 354 U/L (10-36); POTASSIUM 3.8 mmol/L (3.5-5.1); SODIUM 129 mmol/L (136-145); TCO2 29 mmol/L (25-35); TOTAL PROTEIN 6.7 g/dL (6.3-8.3)
[2018-11-30] MEDS: NORVASC PO SCH (08:53)
[2018-11-30] MEDS: FOLIC ACID PO SCH (08:53)
[2018-11-30] MEDS: SODIUM CHLORIDE 0.9% INJ SCH (08:53)
[2018-11-30] MEDS: LOVENOX SUBQ SCH ×2 (08:53→22:59)
[2018-11-30] MEDS: PROTONIX IV SCH ×2 (08:53→22:59)
[2018-11-30] MEDS: MIRALAX PO SCH (08:53)
[2018-11-30] MEDS: DULCOLAX PR SCH ×2 (08:53→22:59)
[2018-11-30] MEDS: BIOTIN PO SCH (08:54)
--- NOTE | 2018-11-30 10:35 | GASTROENTEROLOGY PROGRESS NOTE ---
DATE: 11/30/2018 SUBJECTIVE: Patient resting in bed. Her [id number] was at bedside. The patient continues to have abdominal pain in the left upper quadrant, rib cage pain and back pain. She has not moved her bowels today. She is trying to eat her breakfast this morning. OBJECTIVE: Vital signs: Temperature 97.4 degrees, pulse of 109, respiratory rate 20, blood pressure 103/53, saturating 97% on room air. General Appearance: Moderately built, moderately nourished, lying in bed, currently resting. HEENT: Positive pallor. Mild icterus. Neck: Supple. Abdomen: Discomfort in the left upper quadrant. Mild protuberance of the abdomen. No rebound. Extremities: No cyanosis or clubbing. Neurologic: She is sleeping, was able to wake up on command. LABORATORIES: Sodium 129, potassium 3.8, chloride of 88, bicarb 29, anion gap 12, BUN of 8, creatinine 0.6, glucose of 132, calcium 8.4, total bilirubin is 2, direct total bilirubin of 2, AST 43, ALT 354, alkaline phosphatase 185, total protein 6.7, albumin of 2.7. IMPRESSION AND PLAN: 1. Elevated liver enzymes. Continue to watch for now. Her liver enzymes are sort of staple. Her bilirubin went up a little bit. We will continue to follow. We will follow up on the chronic liver disease workup. Avoid hepatotoxic drugs. I suspect drug-induced liver injury versus possible cholecystitis. The patient has gallstones and gallbladder sludge. There could also be a possibility of tumor invasion in the liver. If needed, we may need to do liver biopsy. 2. Constipation. She will continue MiraLAX and Dulcolax. 3. GI prophylaxis with PPIs. 4. Metastatic breast cancer with brain and lung involvement. Currently being treated by Oncology. 5. DVT prophylaxis with Lovenox. 6. Anemia. Continue to watch for now. 7. Pain in the left upper quadrant and going to the back. May be from tumor invasion of the chest wall. We have consulted Dr. Pandey for possible palliative radiation planning. She is currently on WORKERS' COMPENSATION CLAIMS EXAMINER pump. I have discussed the above plan of care with the patient and family at bedside. 8. Further recommendations to follow pending hospital course. Please call if any further questions. cc: MD Sofiya Marcial MD
--- NOTE | 2018-11-30 13:03 | PROGRESS NOTE ---
DATE: 11/30/2018 SUBJECTIVE: No acute events overnight. The family discussing about hospice care with the whole team, social sciences instructor as well as palliative care team on board. The plan is to set up hospice with her, but the family wants to continue radiation. I do believe hospice can work with palliative radiation, but I am not quite sure. I will wait for the catalytic case operator and palliative care team to manage that. OBJECTIVE: Temperature 97.7 degrees, pulse 114, respiratory rate 17, blood pressure 94/56, oxygen saturation 93 on room air.HEENT: Head normocephalic. No trauma. PERRLA. Neck: Supple. No JVD. No masses. Central trachea. Chest: Decreased breath sounds on the left side with some crackles, crepitus at the bases bilaterally. Abdomen: Soft, nontender, nondistended. No hepatosplenomegaly. Extremities: 1+ lower extremity edema. No clubbing. No cyanosis. Neurological: The patient is sleepy, but arousable. LABORATORY DATA: Sodium 129, potassium 3.8, chloride 88, bicarbonate 29, BUN 8, creatinine 0.6, glucose 132, calcium 8.4, bilirubin 2, AST 43, ALT 354, alkaline phosphatase 185, albumin 2.7. ASSESSMENT AND PLAN: 1. Intractable pain, likely secondary to malignancy, mostly on the left side of the chest. We will continue with the DATA CENTER TECHNICIAN pump. Hematology/Oncology on board. The plan is to probably discharge this patient with hospice. They are trying to set up palliative radiation. I will wait and follow the recommendations of Hematology/Oncology Department, catalytic case operator and Hematology/Oncology Department. Palliative care team and social sciences instructor on board. 2. Left lower extremity deep venous thrombosis. Continue with anticoagulation. 3. Left-sided pulmonary edema. She was scheduled to get a thoracentesis but the fluid collection was small and loculated so the thoracentesis was not done. 4. Hypertension, stable. 5. Type 2 diabetes. Continue with same management. 6. Elevated liver function tests. For now, we will avoid nephrotoxic medications. 7. Hyponatremia, likely secondary to syndrome of inappropriate antidiuretic hormone. 8. Folic acid deficiency. Continue to replace. 9. Metastatic breast cancer with metastasis to brain. Last radiotherapy was done 5 days ago. Hematology/Oncology on board. cc: Patrice Reddy MD
[2018-11-30] MEDS ORDERED: ZOFRAN PO PRN (15:13)
--- NOTE | 2018-11-30 16:14 | HEMO/ONC PROGRESS NOTE ---
DATE: 11/27/2018 SUBJECTIVE: Ms. Lee is lying in her hospital bed. She is rather lethargic and hard to arouse. Her is at bedside. VITAL SIGNS: Temperature 99.8, heart rate 108, respirations 18, blood pressure 97/52, O2 saturation 91% on room air. LABS AND STUDIES: White blood cells 9.15, hemoglobin 11.5, hematocrit 35.4, platelet count 184,000. Sodium 124, potassium 4.3, chloride 85, CO2 28, BUN 7, creatinine 0.5 glucose 82, bilirubin 1.98, AST 65, ALT 480, alkaline phosphatase 137. PHYSICAL EXAMINATION: Cardiovascular: S1-S2 noted. Tachycardia but regular rhythm. Respiratory: Chest is clear with normal respiratory effort. Gastrointestinal: Abdomen is soft. Positive bowel sounds. Extremities: Some trace edema. Neurologic: The patient is really hard to arouse. ASSESSMENT AND PLAN: 1. Metastatic breast cancer. The patient is status post Ixempra and Xeloda. Her most recent dose of Ixempra was back on 10/21/2018. She only had 1 cycle of Xeloda which she would have finished up around that time as well. The patient unfortunately recently had a diagnosis of brain metastasis on 10/30/2018. She has now completed whole-brain radiation with Dr. Pandey as of 11/25/2018. The patient has rather aggressive disease that does not seem to respond well to many of our treatments. She is triple negative. She is now having elevated liver function tests, which is suspicious for progression of disease into her liver. We did discuss with the patient's today hospice. We discussed that we may be at the point where the risks of treatment are outweighing any benefit the patient would receive. 1. Pain. Seems to be better. In fact, we are probably going to go ahead and back off the Dilaudid given that she is so sedated. Changed to bolus to 0.5 mg. She will continue with 2 mg p.o. Dilaudid as needed as well as MS Contin 130 mg q.8 hours. 2. Left lower extremity deep venous thrombosis, new diagnosis. She will continue on Lovenox at therapeutic doses, 1 mg/kg q.12 hours. DISPOSITION: I talked to the that hospice may be appropriate. We will wait for workup in regard to her LFTs by GI and then make further recommendations at that time. Follow up with this patient on Friday. Dictated by DUNG Ibanez for Sofiya Page MD cc: Sofiya Page MD I have seen and examined the patient and the above note reflects my history, physical, assessment and plan. Sofiya Page MD [facility]ITALRuth
[2018-11-30] MEDS: NEURONTIN PO SCH (22:59)
[2018-12-01] MEDS: MIRALAX PO SCH ×3 (03:44→22:24)
[2018-12-01] MEDS: MS CONTIN PO SCH ×6 (03:46→16:45)
[2018-12-01] MEDS: DULCOLAX PR SCH ×3 (03:47→22:25)
[2018-12-01] MEDS: LR 1,000 ML IV SCH (04:33)
[2018-12-01] MEDS: DILAUDID-HP 30 MG in NS 27 ML IV PRN (05:45)
[2018-12-01 07:32] LABS: EOS# 0.03 X1000 (0.0-0.7); EOS% 0.3 % (0.0-10.0); HEMATOCRIT 29.9 % (37.0-47.0); HEMOGLOBIN 9.5 g/dL (12.0-16.0); IMM GRAN# 0.03 X1000 (0.0-0.04); IMM GRAN% 0.3 % (0.0-0.5); LYMPH# 0.33 X1000 (1.2-3.4); LYMPH% 3.7 % (20.5-51.1); MCH 33.1 PG (27-31); MCHC 31.8 g/dL (33-37); MCV 104.2 FL (81-99); MONO# 0.91 X1000 (0.11-0.59); MONO% 10.2 % (1.7-9.3); MPV 8.9 FL (7.4-10.4); NEUT# 7.59 X1000 (1.4-6.5); NEUT% 85.5 % (42.2-75.2); PLT 223 X1000 (130-400); RBC 2.87 XMIL (4.2-5.4); RDW 17.2 % (11.5-14.5); WBC 8.89 X1000 (4.8-10.8)
[2018-12-01 07:56] LABS: AGAP 14; ALB/GLOB RATIO 0.8; ALBUMIN 2.8 g/dL (3.5-5.0); ALKALINE PHOSPHATASE 203 U/L (32-104); BUN 17 mg/dL (8-22); CHLORIDE 86 mmol/L (98-107); COSMO 256; CREATININE 0.6 mg/dL (0.5-0.9); ESTIMATED GFR > 60; GLUCOSE 125 mg/dL (70-104); GOT 37 U/L (10-30); GPT 272 U/L (10-36); POTASSIUM 4.2 mmol/L (3.5-5.1); SODIUM 126 mmol/L (136-145); TCO2 26 mmol/L (25-35); TOTAL BILIRUBIN 1.46 mg/dL (0.20-1.00); TOTAL PROTEIN 6.5 g/dL (6.3-8.3)
[2018-12-01 07:59] LABS: BANDS 2 % (0-1); LYMPHS 6 % (21-51); MONO 4 % (1-9); SEGS 76 % (42-75)
[2018-12-01] MEDS: FOLIC ACID PO SCH (08:47)
[2018-12-01] MEDS: PROTONIX IV SCH ×2 (08:47→22:24)
[2018-12-01] MEDS: LOVENOX SUBQ SCH ×2 (08:47→22:25)
[2018-12-01] MEDS: BIOTIN PO SCH (08:48)
[2018-12-01] MEDS: NORVASC PO SCH (08:48)
--- NOTE | 2018-12-01 17:26 | PROGRESS NOTE ---
DATE: 12/01/2018 SUBJECTIVE: Patient reports feeling some headache and some small lesions in her mouth. Denies any fever or chills. OBJECTIVE: Vital Signs: Temperature 98.3 degrees, heart rate 115, respiratory rate 18, blood pressure 103/53, O2 saturation 91% on room air. General examination: This is a 58-year-old chronically ill-looking female, lying in bed, in no acute distress. Cardiovascular: S1, S2 heard. No murmurs, gallops, or rubs. Regular rate and rhythm. Respiratory: Decreased breath sounds in the left side with some crackles. The patient is not using any accessory muscles or having work of breathing. Abdomen: Soft. Nontender to palpation. Bowel sounds present. No organomegaly. Extremity: 1+ bilateral lower extremity edema. No clubbing or cyanosis noted. Peripheral pulses present in both legs. Neurological: Patient is a little bit sleepy but definitely arousable. Patient has coherent speech. Moves 4 extremities. LABORATORY DATA: Reviewed. ASSESSMENT AND PLAN: 1. Metastatic breast cancer. Unfortunately in her case, this condition was not able to be controlled with medical treatment. This patient had a brain metastases diagnosed on October of this year. From Oncology standpoint, they are recommending for this patient to go to hospice. Dr. Pandey is also providing chemotherapy. Apparently, there is nothing that we can offer to this patient at this point. We are going to talk with the hospice company to see if everything is arranged for this patient, and most likely, she can be discharged tomorrow. 2. Pain secondary to condition #1. Apparently we are awaiting to arrange for a REHEAT FURNACE OPERATOR pump for this patient at home, and then she can be discharged. 3. Left lower extremity deep vein thrombosis (DVT). The patient is on Lovenox. If she goes on hospice, I do not think we need to treat that condition. DISPOSITION: If the hospice company gets everything arranged for her tomorrow, she can be discharged. cc: Cornell Gill MD MTDD
[2018-12-01] MEDS: DILAUDID PO PRN (17:58)
--- NOTE | 2018-12-01 22:02 | PROVIDER PROGRESS NOTE ---
Progress Note - - 12/01/2018 SUBJECTIVE: No acute overnight events. Afebrile. No N/V/F. She continues to have LUQ, flank, and chest pain. Poor appetite. No SOB, rectal bleeding, melena, diarrhea. OBJECTIVE Last Vital Signs Temp 99.2 F 12/01/18 20:28 Pulse 113 H 12/01/18 20:28 Resp 17 12/01/18 19:53 BP 90/55 12/01/18 20:28 Pulse Ox 94 L 12/01/18 20:28 Height 5 ft 11 in Weight 186 lb 1 oz GEN: chronically ill appearing, moderate distress from pain HEENT: anicteric, MMM NECK: supple, no JVD CV: RRR, 2/6 MARLA PULM: CTAB, no wheezing ABD: soft NT, ND, NABS EXT: no cce NEURO: nonfocal LABS: 12/01/18 12/01/18 07:15 07:15 WBC 8.89 Hgb 9.5 L Plt Count 223 Sodium 126 L Potassium 4.2 Chloride 86 L Carbon Dioxide 26 BUN 17 D Creatinine 0.6 Total Bilirubin 1.46 H AST 37 H ALT 272 H Alkaline Phosphatase 203 H Total Protein 6.5 Albumin 2.8 L A/P: Ms. Kiya Lee is a 58-year-old woman, with past medical history significant for metastatic breast cancer with brain and lung involvement who has undergone 2 cycles of Xeloda and Ixempra. That was discontinued in September in the setting of recent diagnosis of brain metastasis She has been undergoing whole-brain radiation. She was admitted secondary to uncontrolled acute on chronic left upper quadrant chest wall and flank pain. Gastroenterology was consulted for worsening liver function tests. Chronic liver disease workup negative. # Abnormal LFTs: suspect drug-induced liver injury that is improving; suspect related to recent chemotherapy in 09/2018; less likely liver infiltration from known malignancy; trend daily # Left upper quadrant pain: 2/2 to underlying breast cancer. Will defer management to primary team. 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 # Folate deficiency anemia: continue folic acid. # Left pleural effusion. Appears to have a small loculation; Thoracentesis could not be performed given the small volume. # Deep vein thrombosis. She is currently on therapeutic Lovenox. # Metastatic breast cancer. Oncology and Palliative Care following, appreciate recommendations Will sign off. Please call with questions or concerns
[2018-12-01] MEDS: NEURONTIN PO SCH (22:24)
[2018-12-01 22:43] LABS: CK INDEX 0.2 (0.0-2.5)
[2018-12-01] MEDS ORDERED: MBX SOLUTION MT PRN (23:15)
[2018-12-02] MEDS: LR 1,000 ML IV SCH ×2 (00:43→05:25)
[2018-12-02 02:53] LABS: CK INDEX 0.2 (0.0-2.5)
[2018-12-02] MEDS: MS CONTIN PO SCH ×6 (03:01→18:28)
--- NOTE | 2018-12-02 07:27 | EKG Report ---
Test Performed on : 12/02/2018 07:00:55 AM Test Reason : EKG changes,Poss. Pericarditis Blood Pressure : / mmHG Vent. Rate : 118 BPM Atrial Rate : 118 BPM P-R Int : 118 ms QRS Dur : 078 ms QT Int : 300 ms P-R-T Axes : 043 021 033 degrees QTc Int : 420 ms Sinus tachycardia. with premature atrial complexes. ST elevation, consider inferolateral injury or acute infarct ACUTE [place] / STEMI Abnormal ECG When compared with ECG of 01-DEC-2018 20:41, (Unconfirmed) Sinus rhythm. has replaced Junctional rhythm. Unconfirmed Result
[2018-12-02 07:52] LABS: CK INDEX 0.2 (0.0-2.5)
--- NOTE | 2018-12-02 08:22 | EKG Report ---
Test Performed on : 12/01/2018 8:41:01 PM Test Reason : Evaluation of rhythm changes per telemetry Blood Pressure : / mmHG Vent. Rate : 116 BPM Atrial Rate : 117 BPM P-R Int : 000 ms QRS Dur : 060 ms QT Int : 292 ms P-R-T Axes : 000 028 040 degrees QTc Int : 405 ms Accelerated Junctional rhythm. ST elevation, consider inferolateral injury or acute infarct ACUTE [place] / STEMI Abnormal ECG When compared with ECG of 25-NOV-2018 16:24, Junctional rhythm. has replaced Atrial flutter. ST elevation has replaced ST depression in Inferior leads ST elevation now present in Lateral leads Unconfirmed Result
[2018-12-02] MEDS: NORVASC PO SCH (08:49)
[2018-12-02] MEDS: MIRALAX PO SCH ×2 (08:49→20:53)
[2018-12-02] MEDS: FOLIC ACID PO SCH (08:49)
[2018-12-02] MEDS: PROTONIX IV SCH ×2 (08:49→20:52)
[2018-12-02] MEDS: LOVENOX SUBQ SCH ×2 (08:49→20:54)
[2018-12-02] MEDS: DULCOLAX PR SCH ×2 (08:50→20:53)
[2018-12-02] MEDS: BIOTIN PO SCH (08:55)
[2018-12-02 11:43] LABS: CK PROFILE 439 U/L (24-173)
[2018-12-02 12:12] LABS: CK-MB < 1.00 ng/mL (0.0-5.0)
--- NOTE | 2018-12-02 14:44 | PROGRESS NOTE ---
DATE: 12/02/2018 SUBJECTIVE: The patient is more sleepy and lethargic today. OBJECTIVE: Vital Signs: Temperature 99.1 degrees, heart rate 113, respiratory rate 18, blood pressure 93/50, O2 saturation 91% on room air. General Examination: This is a chronically ill- appearing, 58-year-old, female lying in bed, in no acute distress. Cardiovascular Examination: S1 and S2 heard. No murmurs, gallops, or rubs. Regular rate and rhythm. Respiratory Examination: Decreased breath sounds in the left side with some crackles. The patient is not using any accessory muscles or having work of breathing. Abdomen: Soft, nontender to palpation. Bowel sounds present. No organomegaly. Extremities: There is 1+ bilateral lower extremity edema. No clubbing or cyanosis noted. Neurological Examination: The patient is definitely more sleepy and obtunded. Moves 4 extremities spontaneously. Laboratory Data: Reviewed. ASSESSMENT AND PLAN: 1. Metastatic breast cancer. I had a long conversation with her and I informed him that her left breast cancer is pretty much well advanced. I think Radiation Oncology Dr. Pandey they have finished providing radiotherapy. From oncology standpoint, the patient needs to go home with hospice. At this time, we are going to talk with a social media marketing specialist to get everything arranged so this patient can go home with hospice. 2. Pain secondary to condition. At this point, we are waiting for arranged SYSTEM DEVELOPMENT MANAGER pump for this patient. 3. Left lower extremity deep vein thrombosis. Patient is on Lovenox. We will continue to monitor. 4. Disposition. At this point, we are awaiting for a hospice company to arrange everything to send this patient home. cc: Cornell Gill MD [facility]
[2018-12-02] MEDS: DILAUDID-HP 30 MG in NS 27 ML IV PRN (19:20)
--- NOTE | 2018-12-02 19:49 | ECHO REPORT ---
ORDER DATE: 12/02/2018 INDICATION: Possible pericarditis, EKG changes. FINDINGS: 1. Right atrium appears normal in size. 2. Moderate tricuspid regurgitation. RV systolic pressure of 40. 3. Normal RV size and systolic function. 4. No significant pulmonic insufficiency. 5. Normal left atrial size at 2.8 cm. 6. No mitral valve prolapse. Trace mitral regurgitation. 7. Normal LV size, end-diastolic dimension of 4 cm. Mild left ventricular hypertrophy with a posterior and interventricular septal wall thickness of 1.1 and 1.2 cm respectively. Normal LV systolic function. The estimated ejection fraction is 55% with normal wall motion. 8. Aortic valve opens well. It is trileaflet. No evidence of stenosis or insufficiency. 9. Aorta appears normal in visualized segments. 10. There is a small pericardial effusion visualized primarily at the apex. There is no clear evidence of tamponade-type physiology on this study. cc: Jose Manuel Marquez MD
[2018-12-02] MEDS: SODIUM CHLORIDE 0.9% INJ SCH (20:52)
[2018-12-02] MEDS: NEURONTIN PO SCH (20:54)
[2018-12-03] MEDS: MS CONTIN PO SCH ×6 (00:46→17:17)
--- NOTE | 2018-12-03 02:24 | DISCHARGE SUMMARY ---
ADMISSION DATE: 11/25/2018 DISCHARGE DATE: 12/02/2018 ADMISSION DIAGNOSES: 1. Intractable chest and back pain secondary to malignancy but we will rule out cardiac or pulmonary disease. 2. Hypertension. 3. Diabetes mellitus type 2. 4. Metastatic breast cancer. DISCHARGE DIAGNOSES: 1. Metastatic breast cancer with pain, now found to be metastasized to the brain in October of this year. Oncology recommended hospice care and she is continuing chemotherapy with Dr. Pandey or radiation. 2. Pain due to the breast cancer. Arranging for MANAGER IN HOME pump at home. 3. Left lower extremity deep venous thrombosis, on Lovenox. 4. Worsening liver function tests and chronic liver disease. Workup was negative. Was followed by Dr. Liang and this was suspected to be a drug-induced liver injury which is improving. 5. Folic acid deficiency anemia. Continue home folic acid. 6. Small volume left pleural effusion. No need for thoracentesis. CONSULTATIONS: 1. Dr. Sofiya Page for breast cancer and metastases to the brain. 2. Dr. Edgard Liang for increasing liver function studies. 3. Azalea Pandey for radiation of the whole brain. SURGERIES OR PROCEDURES: None. HOSPITAL COURSE: On 11/25/2018, Ms. Kiya Lee is a 58-year-old female with breast cancer that metastasized to the brain found in October where she stopped chemotherapy but continued with whole brain radiation. She presented with complaints of intractable pain in the left flank, left chest and left-sided back pain area directly from Dr. Page's office. There is no vomiting or diarrhea. She was complaining of left leg swelling which was found to have a DVT and was started on Lovenox. She was started on a MANAGER IN HOME pump on admission due to the pain. She was found to have elevated liver enzymes. Dr. Edgard Liang was consulted for this. It was believed to be medication induced and improved during her stay. Recommendations from Dr. Sofiya Page is to go on hospice with home MANAGER IN HOME and comfort care so she will be discharged home with hospice and comfort care. DISCHARGE VITAL SIGNS: Temperature 99.1, heart rate 113, respiratory rate 18, blood pressure 93/58, O2 saturation 91% on room air. DISCHARGE LABORATORY DATA: On 12/01/2018, CBC: White blood cells 8000, hemoglobin 9, hematocrit 29, platelet count 223. Sodium 126. Potassium 4.2. BUN 17. Creatinine 0.6. Glucose 125. Calcium 8.0. Bilirubin 1.46. AST 37. ALT 272. CKs 439-500. Troponin less than 0.01. Albumin was 2.8. She did have an antismooth muscle antibody which was negative. PERTINENT IMAGING: Chest x-ray on admission showed a fairly large left pleural effusion with adjacent atelectasis and/or infiltrate that appeared to be slightly increased. Had a lower extremity venous ultrasound that showed a left peroneal vein DVT that was acute. Chest ultrasound on 11/27/2018: Thoracentesis not performed due to the small size of the loculated left fluid collection. Abdominal ultrasound on 11/27/2009: Sludge with small gallstones in the gallbladder. Blood cultures and urine cultures were negative. DISCHARGE MEDICATIONS: 1. Neurontin 600 mg p.o. nightly. 2. Biotin 10,000 mcg p.o. daily. 3. Bisoprolol/hydrochlorothiazide 5/6.25 one daily. 4. Lidocaine/prilocaine cream topical p.r.n. 5. Metformin 1000 mg p.o. twice daily. 6. Morphine immediate release 30 mg p.o. every 4-6 hours p.r.n. 7. Morphine sulfate extended release 100 mg p.o. every 8 hours scheduled. 8. MS Contin or morphine extended release 15 mg p.o. t.i.d. 9. Norvasc 10 mg p.o. daily. 10.Zofran 8 mg p.o. every 8 hours. 11.Patient is being set up for MANAGER IN HOME at home. DISCHARGE ACTIVITY: As tolerated. DISCHARGE DIET: As tolerated, regular. DISCHARGE FOLLOWUP: Dr Pandey for whole brain radiation. DISCHARGE INSTRUCTIONS: Call Hospice for any questions or concerns of care. DISCHARGE DISPOSITION: Home with hospice. Dictated by DEVON Hamilton for Cornell Gill MD Addendum: Patient seen and examined by myself. Agree with DEVON note. It reflects my assessment and plan. Patient is being discharged in stable condition to home with hospice. They are going to arrange PCP pump with Dilaudid for her for pain management. cc: DEVON Hamilton MD [facility]
[2018-12-03] MEDS: LR 1,000 ML IV SCH (04:43)
[2018-12-03] MEDS: FOLIC ACID PO SCH (08:30)
[2018-12-03] MEDS: NORVASC PO SCH (08:30)
[2018-12-03] MEDS: PROTONIX IV SCH ×2 (08:31→21:25)
[2018-12-03] MEDS: MIRALAX PO SCH ×2 (08:31→21:25)
[2018-12-03] MEDS: DULCOLAX PR SCH ×2 (08:31→21:25)
[2018-12-03] MEDS: BIOTIN PO SCH (08:31)
[2018-12-03] MEDS: LOVENOX SUBQ SCH (08:31)
--- NOTE | 2018-12-03 16:11 | PROGRESS NOTE ---
DATE: 12/03/2018 SUBJECTIVE: The patient continues to be sleepy and lethargic, no complaints noted as per family who is at bedside. OBJECTIVE: Vital Signs: Temperature 99.5 degrees, heart rate 113, respiratory rate 12, blood pressure 97/54, O2 saturation 92% on room air General Examination: This is a chronically ill- appearing and frail 58-year-old female lying in bed, in no acute distress. Cardiovascular: S1, S2 heard. No murmurs, gallops, or rubs. Regular rate and rhythm. Respiratory: Breath sounds in both pulmonary bases as well as crackles. Patient is not using any accessory muscles or having work of breathing. Abdomen: Soft, nontender to palpation. Bowel sounds present. No organomegaly. Extremities: 1+ bilateral lower extremity edema. No clubbing or cyanosis noted. Neurological: Patient is more sleepy, more lethargic. ASSESSMENT AND PLAN: 1. Metastatic breast cancer. The patient actually has been okay to go home with home health. I think the idea is to receive home health services and then when patient starts to decline then we can switch services to hospice. I do think that the is not completely aware of the clinical situation of this patient. I explained to him yesterday in depth about the bad prognosis of the patient and the fact that unfortunately there is nothing that we can do from the medical standpoint to help this patient. Decision has been made since yesterday to send this patient home with hospice. It has been more than 24 hours since the hospice company is taking its time to set up DATA PROCESSING MECHANIC pump with Dilaudid. We hope that tomorrow morning we are able to discharge this patient. Otherwise we may need to consult another hospice/home health company because tomorrow will be 48 hours that we were taking for set up of DATA PROCESSING MECHANIC pump. 2. Pain secondary to metastatic breast cancer. Aware. Patient is on DATA PROCESSING MECHANIC pump with Dilaudid now and the pain is under control. 3. Left lower extremity DVT. Patient is on Lovenox. 4. Disposition: As we mentioned above. cc: Cornell Gill MD
[2018-12-03] MEDS ORDERED: XARELTO PO SCH (20:00)
[2018-12-03] MEDS: NEURONTIN PO SCH (21:25)
[2018-12-03] MEDS: SODIUM CHLORIDE 0.9% INJ SCH (21:25)
[2018-12-03] MEDS: XARELTO PO SCH (21:30)
[2018-12-04] MEDS: MS CONTIN PO SCH ×6 (00:07→09:49)
[2018-12-04] MEDS: DILAUDID PO PRN ×2 (05:55→11:53)
[2018-12-04] MEDS: LR 1,000 ML IV SCH (05:55)
[2018-12-04] MEDS: FOLIC ACID PO SCH (09:50)
[2018-12-04] MEDS: MIRALAX PO SCH (09:50)
[2018-12-04] MEDS: NORVASC PO SCH (09:50)
[2018-12-04] MEDS: PROTONIX IV SCH (09:50)
[2018-12-04] MEDS: SODIUM CHLORIDE 0.9% INJ SCH (09:50)
[2018-12-04] MEDS: XARELTO PO SCH (09:50)
[2018-12-04] MEDS: BIOTIN PO SCH (09:56)
[2018-12-04] MEDS: DULCOLAX PR SCH (10:02)
[2018-12-04 11:24] VITALS: BP 99/59
--- NOTE | 2018-12-04 17:19 | DISCHARGE SUMMARY ---
ADMISSION DATE: 11/25/2018 DISCHARGE DATE: 12/04/2018 ADDENDUM REPORT Briefly, this patient has been admitted to the hospital for metastatic breast cancer with metastasis to the brain. The patient has been seen by radiation oncology and hematology/oncology. They have finished both with his evaluation and treatment. The recommendations from Oncology to send this patient to home with hospice because of his poor response to medical treatment. The patient had been discharged 48 hours ago but initially was not completely agreed to go home with hospice. Finally, family took the decision to send her home. The patient is going to be discharged in stable condition. She will be monitored by the hospice company. cc: Cornell Gill MD
== END 2018-12-04 13:32 | disposition hospice, home (50) | DRG 948 ==
LOC: DIRADM 12:08 → SUATTDRO 12:08 → 3N 15:00
PROVIDERS: ATTEND Internal Medicine
CPT/HCPCS: 71010; 71045; 76604; 76700; 80053; 80061; 80074; 82550; 82553; 82607; 82746; 82948; 83036; 83721; 83735; 84484; 85025; 85379; 85610; 86038; 86039; 86255; 87040; 87088; 93005; 93010; 93306; 93971; A9270; C9113; J1170; J1650; J7120; S0164; XXXXX

== ENCOUNTER 2018-12-08 11:55 | Inpatient (IN) ==
--- NOTE | 2018-12-08 13:01 | Diag Imaging Result Doc PS360 ---
EXAM: CT ABDOMEN/PELVIS W/O CONTRAST 12/08/2018 HISTORY: intractable abd pain; known metastatic (brain) CA TECHNIQUE: This exam was performed using automated exposure control, adjustment of mA or kV according to patient size, and/or use of iterative reconstruction technique. COMMENT: The current examination is compared with the previous PET/CT of 09/16/2018. There is continued massive pleural thickening on the left with no visible pneumatized lung. There is soft tissue swelling/mass on either side of the fourth costal cartilage on the left. There was a similar appearance on the previous study. There is some pericardial fluid. There are multiple pulmonary nodules in the right middle and lower lobes. These are larger and more numerous than on the previous examination. In particular there is a nodule in the posterior costophrenic sulcus measuring over 8 mm in diameter which was barely visible at the time the previous study. There is an 8mm pleural-based nodule on image 12 which was less than 7 mm at the time the previous study. There are multiple granulomata in the liver. There is subcutaneous edema and skin thickening over the left flank. The spleen and adrenal glands are not enlarged. There is celiac adenopathy which is not appreciable on the previous study with a node measuring 18 mm in diameter. There is a very large left periaortic node measuring over 3.5 cm in AP dimension. This was 3.1 cm previously. The kidneys are without evidence of hydronephrosis or stones. There is a fairly large amount of gas in the transverse colon and some stool is seen elsewhere in the colon. The appendix is not enlarged. The small bowel is not distended. There is a small amount of free fluid in the cul-de-sac. The urinary bladder is not distended. There are degenerative disc changes particularly at the L5-S1 level. There is some irregular lucency near the left pedicle of T12 which is apparently also present at the time the previous study and may represent metastatic disease. IMPRESSION: Worsened pulmonary metastatic disease. Extensive malignant pleural disease on the left. Worsened retroperitoneal adenopathy. Osseous metastatic disease to T12. Direct involvement of the anterior chest wall particularly on the left. Electronically signed by Christ Lacy 12/08/2018 12:58 PM
[2018-12-08 17:37] LABS: BASO# 0.01 X1000 (0.0-0.2); BASO% 0.1 % (0.0-0.8); HEMATOCRIT 36.1 % (37.0-47.0); HEMOGLOBIN 11.2 g/dL (12.0-16.0); IMM GRAN# 0.02 X1000 (0.0-0.04); IMM GRAN% 0.3 % (0.0-0.5); LYMPH# 0.36 X1000 (1.2-3.4); MCH 32.8 PG (27-31); MCV 105.9 FL (81-99); MONO# 0.56 X1000 (0.11-0.59); MONO% 7.8 % (1.7-9.3); MPV 8.6 FL (7.4-10.4); NEUT# 6.26 X1000 (1.4-6.5); NEUT% 86.8 % (42.2-75.2); PLT 349 X1000 (130-400); RBC 3.41 XMIL (4.2-5.4); RDW 16.7 % (11.5-14.5); WBC 7.21 X1000 (4.8-10.8)
[2018-12-08 17:58] LABS: AGAP 15; ALB/GLOB RATIO 1.1; ALBUMIN 3.3 g/dL (3.5-5.0); ALKALINE PHOSPHATASE 178 U/L (32-104); BUN 7 mg/dL (8-22); CALCIUM 8.3 mg/dL (8.8-10.2); CHLORIDE 92 mmol/L (98-107); COSMO 263; CREATININE 0.3 mg/dL (0.5-0.9); ESTIMATED GFR > 60; GLUCOSE 73 mg/dL (70-104); GOT 45 U/L (10-30); GPT 144 U/L (10-36); POTASSIUM 3.8 mmol/L (3.5-5.1); SODIUM 133 mmol/L (136-145); TCO2 26 mmol/L (25-35); TOTAL BILIRUBIN 0.61 mg/dL (0.20-1.00); TOTAL PROTEIN 6.4 g/dL (6.3-8.3)
[2018-12-08] MEDS ORDERED: NS 1,000 ML IV ONE (18:41)
--- NOTE | 2018-12-08 18:42 | PROVIDER DOCUMENTATION ---
This chart was entered by Hayden Holbrook Scribe, acting as scribe for Daren Nunez MD. HPI-Abdominal Pain/GI Problem - General Stated Complaint: abd pain Time Seen by Provider: 12/08/18 11:59 Source: patient, EMS Allergies/Adverse Reactions: Patient Allergies Allergy/AdvReac Type Severity Reaction Status Date / Time No Known Allergies Allergy Verified 10/04/18 10:42 Home Medications: Home Medication List Medication Instructions Recorded Confirmed Last Taken Type Amlodipine [Norvasc] 10 mg PO DAILY 01/31/16 11/25/18 10/04/18 History Bisoprolol Fumarate/Hctz 1 each PO DAILY 01/31/16 11/25/18 10/04/18 History [Bisoprolol-Hctz 5-6.25 mg Tab] Metformin HCl [Metformin ER 1,000 mg PO BID 01/31/16 11/25/18 10/04/18 History Osmotic] Gabapentin 2 cap PO QHS 07/10/17 11/25/18 10/04/18 History Ondansetron [Zofran] 8 mg PO Q8H PRN PRN 07/10/17 11/25/18 10/04/18 History Morphine Sulfate [Morphine Sulfate 1 cap PO Q8H 10/04/18 11/25/18 10/04/18 History ER] Biotin 10,000 mcg PO DAILY 11/25/18 11/25/18 Unknown History Lidocaine/Prilocaine Cream [Emla 1 applicatn TOP PRN PRN 11/25/18 11/25/18 Unknown History Cream] Morphine E.r. [Ms Contin] 15 mg PO TID 11/25/18 11/25/18 Unknown History Morphine Ir 30 mg PO Q4-6H PRN PRN 11/25/18 11/25/18 Unknown History Patient's Own Med 2 tsp PO Q4H PRN PRN 11/25/18 11/25/18 Unknown History - History of Present Illness-ABD Nature of Presenting Problems: Pt is a 58 y/o F presents to the ED with abdominal pain. EMS reports pt is on h ospice care with metastatic cancer to the brain. Pt is on hospice care because no results from chemo. EMS reports pt came to the ED for pain that was not controlled after 10mg of morphine and 5 mg of morphine. Abdominal Pain Onset Location: reports: LUQ, LLQ Pain Radiation: reports: no radiation Quality of Pain: reports: aching Severity in ED: reports: severe Onset/Duration: reports: gradual, 1-3 hours ago Exposure to sick contacts?: No Modifying Factors: improves with: nothing (given 15mg of morphine prior to coming to the ED with no relief.) Associated Symptoms: denies: chest pain, constipation, diarrhea, genitourinary problems, shortness of breath, vomiting Review of Systems - Adult - REVIEW OF SYSTEMS - ADULT Constitutional: denies: chills Eyes: reports: no symptoms reported Ears, Nose, Mouth & Throat: reports: no symptoms reported Cardiovascular: denies: chest pain, edema, palpitations Respiratory: denies: cough, shortness of breath, wheezing Gastrointestinal: reports: abdominal pain. denies: nausea, vomiting Genitourinary: denies: dysuria, discharge Musculoskeletal: denies: back pain, neck pain Integumentary: reports: no symptoms reported Neurological: denies: dizziness/vertigo, headache/migraines Psychiatric: reports: no symptoms reported Endocrine: reports: no symptoms reported Hematologic/Lymphatic: reports: no symptoms reported Allergic/Immunologic: reports: no symptoms reported All Other Systems: Reviewed and Negative Past History - Adult - PAST MEDICAL HISTORY-ADULT Review of Records: reports: Old Records Reviewed, Nursing Assessment Review, Medications Reviewed Cardiovascular: reports: HTN Endocrine/Immune: reports: Diabetes Other Conditions: reports: other (breast cancer) - IMMUNIZATION STATUS Childhood Immunizations: See Nurse Assessment Flu Vaccine: See Nurse Assessment - SOCIAL HISTORY Smoking: non-smoker Substance Use: none/never Living Situation: family Physical Exam-General - PHYSICAL EXAM-ADULT Initial Vital Signs Reviewed: Yes - CONSTITUTIONAL General Appearance: appears well, alert, no apparent distress - EYES Eyes: PERRL/EOMI, pink conjunctivae - HEAD, EARS, NOSE, MOUTH & THROAT HENMT: moist mucous membranes, normal ENT inspection, pharynx normal - NECK Neck: non-tender, full range of motion, supple, normal inspection - RESPIRATORY Respiratory: lungs clear, normal breath sounds, no pleuratic chest pain, no respiratory distress - CARDIOVASCULAR Cardiovascular: normal peripheral pulses, regular rate, rhythm - GASTROINTESTINAL (ABDOMEN) Abdominal Exam: soft, tenderness. negative: guarding, rigid - MUSCULOSKELETAL Back Exam: normal inspection, no CVA tenderness, no vertebral tenderness Extremity: normal range of motion, non-tender, normal gait, normal inspection - SKIN Integumentary: normal color, normal turgor, warm/dry - NEUROLOGIC Neurologic: grossly normal, no motor/sensory deficits - PSYCHIATRIC Psych/Mental Status: normal mood/affect, normal thought content, normal thought process, oriented x 3 Progress - PLAN OF CARE/RESULTS Progress/Plan/Lab Results: Dr Nunez discuss with Hospice about treatment of pt. Hospice reports pt requested treatment and she and the family have not made her a DNR. They report also giving pt Fentayl in addition to the morphine with the pain still not controlled. At 1546 Dr Nunez had a lengthy discussion with the and sister about her DNR status with her current medical situation asking them to reconsider her status. Result Diagrams: 12/08/18 17:18 12/08/18 17:18 - REASSESSMENT Reassessment #1 Time Reassessed: 17:00 Status: unchanged (LENGTHY DISCUSSION (#2) w/ family re: goals of tx, Hospice care and DNR status. ultimately family is not reconciled to DNR. pt seen @ bedside by Dr. Page as well, who requested Hospitalist adm. for pain control and consultation.) - CT/MRI 1 CT Study: Abdomen, Pelvis Impression: Abnormal (EXAM: CT ABDOMEN/PELVIS W/O CONTRAST 12/08/2018 HISTORY: intractable abd pain; known metastatic (brain) CA TECHNIQUE: This exam was performed using automated exposure control, adjustment of mA or kV according to patient size, and/or use of iterative reconstruction technique. COMMENT: The current examination is compared with the previous PET/CT of 09/16/2018. There is continued massive pleural thickening on the left with no visible pneumatized lung. There is soft tissue swelling/mass on either side of the fourth costal cartilage on the left. There was a similar appearance on the previous study. There is some pericardial fluid. There are multiple pulmonary nodules in the right middle and lower lobes. These are larger and more numerous than on the previous examination. In particular there is a nodule in the posterior costophrenic sulcus measuring over 8 mm in diameter which was barely visible at the time the previous study. There is an 8mm pleural-based nodule on image 12 which was less than 7 mm at the time the previous study. There are multiple granulomata in the liver. There is subcutaneous edema and skin thickening over the left flank. The spleen and adrenal glands are not enlarged. There is celiac adenopathy which is not appreciable on the previous study with a node measuring 18 mm in diameter. There is a very large left periaortic node measuring over 3.5 cm in AP dimension. This was 3.1 cm previously. The kidneys are without evidence of hydronephrosis or stones. There is a fairly large amount of gas in the transverse colon and some stool is seen elsewhere in the colon. The appendix is not enlarged. The small bowel is not distended. There is a small amount of free fluid in the cul-de-sac. The urinary bladder is not distended. There are degenerative disc changes particularly at the L5-S1 level. There is some irregular lucency near the left pedicle of T12 which is apparently also present at the time the previous study and may represent metastatic disease. IMPRESSION: Worsened pulmonary metastatic disease. Extensive malignant pleural disease on the left. Worsened retroperitoneal adenopathy. Osseous metastatic disease to T12. Direct involvement of the anterior chest wall particularly on the left. Electronically signed by Christ Lacy 12/08/2018 12:58 PM) - CONSULTS/PCP/HOSPITALIST Notification #1 *Consult/PCP/Hospitalist*: Jerome (*for Hospitalists) Time Discussed: 18:05 Consult Disposition: Admit Departure - Departure Date of Disposition Decision: 12/08/18 Time of Disposition Decision: 18:05 DIAGNOSIS: Pain Disposition: ADMITTED INPATIENT 09 Certified Medical Emergency: Urgent Condition: Poor Referrals and Follow-Ups: None,PCP [NON-STAFF PROVIDER] - - Critical Care Note This patient required my direct & personal management of CC.: No Attestation - Physician/ SOFYA Attestation The physician spent face to face time with patient:: Yes Advanced Practice Provider documentation review:: Supervising physician onsite and consulted in the evaluation and care of this patient. The physician did have a face to face encounter with the patient. This chart was documented by the indicated scribe, (Hayden Holbrook Scribe) and accurately reflects the services I performed and decisions made by me, Daren Nunez MD, as attested by the provider's signature.
[2018-12-08] MEDS ORDERED: SENOKOT PO PRN (18:45)
[2018-12-08] MEDS ORDERED: ZOFRAN IV PRN (18:48)
[2018-12-08] MEDS ORDERED: DILAUDID PCA VIAL IV PRN ×2 (18:48→19:14)
[2018-12-08] MEDS ORDERED: NARCAN IV PRN (18:48)
[2018-12-08 18:57] LABS: INR 1.15; PROTIME 15.7 Seconds (11.0-16.0)
[2018-12-08] MEDS ORDERED: DUONEB (A & A) INH PRN (18:57)
[2018-12-08] MEDS ORDERED: SODIUM CHLORIDE 0.9% INJ SCH (19:00)
[2018-12-08] MEDS ORDERED: DECADRON PO PRN (19:00)
[2018-12-08] MEDS: PROTONIX IV SCH (19:00)
[2018-12-08] MEDS: LOVENOX SUBQ SCH (19:20)
--- NOTE | 2018-12-08 19:33 | HISTORY AND PHYSICAL ---
ONCOLOGIST: Dr. Sofiya Page. CHIEF COMPLAINT: Abdominal and chest pain HISTORY OF PRESENT ILLNESS: Ms. Lee is a 58-year-old female with a known history of metastatic breast cancer with heavy involvement of the lungs, liver and brain. She was actually discharged from our service on 12/04/2018 to the care of hospice. She returns today with worsening pain which is not relieved with her hospice medications. Apparently Dr. Page has recommended the patient be at home on hospice with IV Dilaudid LACE FINISHER; however, the patient remains a FULL CODE, and the hospice company that she is currently with does not allow for IV LACE FINISHER if the patient is not a DNR level 1. Because of that, it was felt she would need inpatient admission for intractable pain. She did have an abdomen and pelvis CT done today in the ER which showed worsened pulmonary metastatic disease with extensive malignant pleural disease on the left, worsened retroperitoneal adenopathy with osseous metastatic disease to T12 with direct involvement of the anterior chest wall, particularly on the left. Laboratory data was also done, which was consistent with her last set of labs that showed mild elevation in her AST and ALT and macrocytic anemia. Otherwise, really nothing acute. She does have a known DVT on the left, and we have restarted her Lovenox therapeutic dose for that. She will be admitted for further treatment and evaluation. PAST MEDICAL HISTORY: 1. Metastatic breast cancer with brain, liver and lung involvement. 2. Recent diagnosis of left-sided DVT. 3. Hypertension. 4. Diabetes mellitus. 5. Chronic pain. PAST SURGICAL HISTORY: Hysterectomy, bilateral mastectomy. SOCIAL HISTORY: No tobacco, alcohol or drug use. She is . currently is not at the bedside, but she has a sister at the bedside with her as well. REVIEW OF SYSTEMS: A 10-point review of systems is obtained and found to be negative with the exception of the HPI. HOME MEDICATIONS: The pain medications have been changed by the hospice company, and they have not yet been reconciled, so we are awaiting those. They have not been compiled by the nursing staff at this time. ALLERGIES: No known drug allergies. PHYSICAL EXAMINATION: VITAL SIGNS: Blood pressure 101/55, heart rate 92, respiratory rate 18, O2 saturation 95% on nasal cannula. Temperature is 98.2. GENERAL: This is an elderly and frail-appearing 58-year-old female lying in the hospital bed in no acute distress. NEUROLOGIC: She is awake, a little bit sleepy, but she follows commands without distress. HEENT: Head is atraumatic, normocephalic. Pupils equal, round, and reactive to light. Oral mucosa is dry. There is some thrush. NECK: Trachea is midline. There is no JVD. CHEST: Clear to auscultation with diminished lung sounds over the left. CV: Respiratory rate. S1 and S2 noted. No appreciable murmurs. GI: Diffuse epigastric tenderness to palpation. Bowel sounds are hypoactive. EXTREMITIES: The left lower extremity with trace edema. Both legs with palpable pulses. DIAGNOSTIC DATA: CT abdomen and pelvis: Please see HPI. WBCs 7.2, hemoglobin 11.2, hematocrit 36.1, platelet count 349. Sodium is 133, potassium 3.8, chloride 92. CO2 is 26, anion gap 15, BUN 7, creatinine 0.3, glucose 73, calcium 8.3. AST 45, ALT 144, alkaline phosphatase 178. Protein 6.4, albumin 3.3. ASSESSMENT/PLAN: 1. Intractable pain: Secondary to diffuse metastatic disease. We have started a Dilaudid LACE FINISHER pump and will titrate per pain. Will need to discuss code status with her and her family, along with Dr. Page, as this will be integral in getting her home in the most comfortable state. 2. Known left lower extremity deep venous thrombosis: We have started her on Lovenox at 1 mg/kg. Will continue that. 3. Diabetes mellitus. Will add pattern sugar and sliding-scale insulin. 4. Hypertension. Currently her blood pressure is marginally low. Will hold off on any antihypertensives for now. 5. Diffuse metastatic breast cancer. Aware. Will need to discuss with Palliative Care, Dr. Page and the family with regard to code status and expectations. 6. Deep venous thrombosis prophylaxis with Lovenox. 7. Code status is currently FULL CODE. Dictated by DEVON Lopez for Shayne Ko MD cc: DEVON Lopez MD I performed an independent exam and assessment of this patient and it was mainly notably diffuse abd. pain without rebound. BS decreased. Will continue with Fentanyl patch along with the above LACE FINISHER. MTDD
[2018-12-08] MEDS ORDERED: DILAUDID-HP 30 MG in NS 27 ML IV PRN (19:45)
[2018-12-08] MEDS ORDERED: DIFLUCAN PO SCH (20:00)
--- NOTE | 2018-12-08 20:53 | HISTORY AND PHYSICAL ---
ADDENDUM Kiya Lee was admitted on 12/08/2018. Her primary oncologist is Dr. Sfoiya Page. The patient was transferred here from home on account of having intractable pain. She reports that she was taking oral morphine 3 days ago, and it had worked very well for her when she was discharged 4 days ago from our facility. I think 2 days ago, this was discontinued, and she was put on oral Dilaudid, and her abdominal pain has gotten worse. It is sharp, radiating to her back, and worse with movement. No relief from Dilaudid. She has also been simultaneously started on a Fentanyl patch 150 mcg every 72 hours. Other than having occasional constipation and a poor appetite, the patient has no other additional findings. Her exam was only notable for oral thrush, which I presume is secondary to steroids. PLAN: The patient will be started on IV Dilaudid at a lower dose, 1 mg/hour instead of 2 because she is now on a fentanyl patch. She will also be started on Diflucan for oral thrush. She does admit to odynophagia and dysphagia, which makes me think that she may have esophageal involvement. She had been on Nystatin, but this has not improved her symptoms. Hopefully this will improve it. The patient also needs to have an end-of-life discussion had. Her long-term prognosis is very grim, but her family still wants to her be FULL CODE. A Palliative Care consult will be made, and Dr. Page will notified to see the patient in the morning. cc: Shayne Ko MD
[2018-12-08] MEDS ORDERED: NEURONTIN PO SCH (21:00)
[2018-12-08] MEDS: MYCOSTATIN SUSP PO SCH (22:33)
[2018-12-08] MEDS: HUMULIN R SUBQ SCH (22:34)
[2018-12-09 01:13] LABS: HEMATOCRIT 27.1 % (37.0-47.0); HEMOGLOBIN 8.5 g/dL (12.0-16.0); MCH 33.7 PG (27-31); MCHC 31.4 g/dL (33-37); MCV 107.5 FL (81-99); MPV 8.4 FL (7.4-10.4); RBC 2.52 XMIL (4.2-5.4); RDW 16.8 % (11.5-14.5); WBC 8.11 X1000 (4.8-10.8)
[2018-12-09 01:33] LABS: AGAP 11; BUN 6 mg/dL (8-22); CALCIUM 8.2 mg/dL (8.8-10.2); CHLORIDE 95 mmol/L (98-107); COSMO 263; CREATININE 0.3 mg/dL (0.5-0.9); ESTIMATED GFR > 60; GLUCOSE 74 mg/dL (70-104); MAGNESIUM 1.5 mg/dL (1.5-2.7); SODIUM 133 mmol/L (136-145); TCO2 27 mmol/L (25-35)
[2018-12-09] MEDS: LOVENOX SUBQ SCH ×2 (06:45→18:14)
[2018-12-09] MEDS: HUMULIN R SUBQ SCH ×4 (06:47→21:12)
[2018-12-09] MEDS ORDERED: CITRATE OF MAGNESIA PO SCH (09:00)
[2018-12-09] MEDS: POTASSIUM CHLORIDE 20 MEQ/SWI 20 MEQ/100 ML IVPB IV SCH ×2 (09:50→17:16)
[2018-12-09] MEDS: MYCOSTATIN SUSP PO SCH ×3 (09:52→18:14)
--- NOTE | 2018-12-09 14:54 | HEMO/ONC CONSULTATION ---
DATE: 12/09/2018 HISTORY OF PRESENT ILLNESS: Ms. Lee is an unfortunate 58 -year-old female who is known to us as we have been treating her for breast cancer. She does have metastatic disease. She was actually in the hospital about a week ago for intractable pain. After lengthy discussions it was decided the patient would go home on hospice as she is not a candidate for any further treatment either chemotherapy or radiation. The patient was home with hospice for about 3 days. Her pain was being well managed and she actually started to feel quite well and decided that she no longer wanted hospice. She then developed a pain crisis and has actually presented to the emergency department for pain management. The patient has been on several lines of therapy. She has most recently been on Ixempra and Xeloda with her last dose being on 10/21/2018. She also recently was diagnosed with brain metastasis on 10/30/2018. She was able to complete whole-brain radiation as of 11/25/2018. She has rather aggressive disease. It has not been responding well to many treatments. We have been consulted as we know the patient and we are here today to discuss end of life care as well as goals of care. PAST MEDICAL HISTORY: 1. Metastatic breast cancer, triple negative, pulmonary and brain metastasis. Hospice appropriate. 2. Hyperlipidemia. 3. Hypertension. 4. Degenerative disk disease. SURGICAL HISTORY: 1. The patient is status post lumbar laminectomy back in 2010. 2. Patient is also status post bilateral mastectomies. 3. Port placement. SOCIAL HISTORY: Patient is and lives with her spouse currently. She has 4 children. She has never smoked and only has consumed alcohol in the past in a social setting. She denies any illicit drug use. FAMILY HISTORY: Negative for any cancer. REVIEW OF SYSTEMS: Twelve point review of systems has been completed and is negative except for expressed in HPI. PHYSICAL EXAMINATION: Vital Signs: Temperature 100.4 degrees, heart rate 109, respirations 18, blood pressure 90/53, O2 saturation 100% on 2 L nasal cannula. General: This is an female who is chronically ill appearing who is sitting up in hospital bed. She is currently in no acute distress. Her lztuyx-wa-ozl is at bedside. The patient is alert. HEENT: Normocephalic atraumatic. Eyes: Pupils equal, round, reactive. Ears, nose, throat, neck, and mouth: Oral mucosa appears to be normal. Cardiovascular: S1-S2 heard with tachycardia, but no murmurs gallops or rubs. Respiratory: Chest is essentially clear. Normal respiratory effort. Gastrointestinal: Abdomen is soft. Positive bowel sounds noted. Musculoskeletal: No bony abnormalities. Extremities: Some trace edema x4. Neurologic: Patient is alert and oriented. LABORATORY AND STUDIES: Abdominal and pelvic CT which was done on 12/08/2018 shows worsened pulmonary metastatic disease. Extensive malignant pleural disease on the left. Worsened retroperitoneal adenopathy. Osseous metastatic disease to T12. Direct involvement of the anterior chest wall particularly on the left. This is compared to her previous PET-CT scan which was done on 09/16/2018. ASSESSMENT/PLAN: 1. Metastatic breast cancer, triple negative, pulmonary and brain metastasis. Patient is not a candidate for any further chemotherapy given her current performance status. In addition, most recently her treatments have not been effective. The patient has aggressive disease. We have again recommended hospice and has discussed this in detail with the patient and her family. Earlier this morning, did agree to DNR. The patient also did agree to go home with hospice. We will have to get that arranged and also to discuss further with her who will be present a little bit later. 2. Intractable pain. This is much better than on her admission. She is on the pain pump. She can continue this with hospice at home. 3. Oral thrush. Patient was previously getting nystatin mouthwash without relief. She has now received some Diflucan doses. Continue to treat per hospice. We want to thank you for consulting us on Ms. Lee and allowing us to participate in her care while she is here at [facility]. We will continue to follow along. Dictated by DUNG Ibanez for Sofiya Page MD cc: Sofiya Page MD I have seen and examined the patient and the above note reflects my history, assessment and plan. Sofiya MARTINS
[2018-12-09] MEDS ORDERED: COMPAZINE PO PRN (15:18)
[2018-12-09] MEDS ORDERED: ATIVAN PO PRN (15:18)
[2018-12-09] MEDS ORDERED: DULCOLAX PR PRN (15:18)
[2018-12-09] MEDS ORDERED: HALDOL LIQUID PO PRN (15:18)
[2018-12-09] MEDS: PROTONIX IV SCH (18:14)
[2018-12-09] MEDS ORDERED: NS 250 ML ONE (18:25)
[2018-12-09] MEDS ORDERED: PERICOLACE PO SCH (21:00)
[2018-12-09 21:03] VITALS: BP 104/60
--- NOTE | 2018-12-09 22:41 | DISCHARGE SUMMARY ---
ADMISSION DATE: 12/08/2018 DISCHARGE DATE: 12/09/2018 SUMMARY: Patient admitted for pain control. She has metastatic breast cancer to brain, liver, and lung. She is very confused. She came in due to severe pain. She is going to go home with hospice and CERTIFIED PHARMACIST ASSISTANT. She has a history of a left lower extremity DVT. She has been placed on Lovenox. Plan is for her to go home and resume hospice care there and get CERTIFIED PHARMACIST ASSISTANT. The patient is a DNR 1 now. At this point, she does have a DVT, but we are not going to plan to aggressively treat that since we are really pursuing comfort care, and she is going home with a morphine CERTIFIED PHARMACIST ASSISTANT as soon as we can get that set up. DISCHARGE CONDITION: Otherwise stable. DISCHARGE MEDICATIONS: Gabapentin 600 daily. Her Dilaudid, I am assuming, will be deactivated. Her fentanyl, I am going to leave the fentanyl patch on for the time being as a basal, and the CERTIFIED PHARMACIST ASSISTANT will be there. If her CERTIFIED PHARMACIST ASSISTANT is set with a basal rate, we do need to discontinue the fentanyl. Biotin, bisacodyl, bisoprolol, Compazine, dexamethasone, Haldol p.r.n., Ativan p.r.n., metformin 1 g b.i.d., Norvasc, Senokot, and Zofran. DISCHARGE PLAN: Plan is to discharge as soon as we can get home IV set up with a home IV company. cc: Benjie Hernandez MD
[2018-12-12] MEDS ORDERED: DURAGESIC 100 MICROGM/HR PATCH TD SCH (06:00)
[2018-12-12] MEDS ORDERED: DURAGESIC 50 MICROGM/HR PATCH TD SCH (06:00)
== END 2018-12-09 22:19 | disposition hospice, home (50) | DRG 948 ==
LOC: SUPCPDRO → ED 11:55 → 3N 19:47 → SUATTDRO 19:47
PROVIDERS: ATTEND Internal Medicine
CPT/HCPCS: 74176; 80048; 80053; 82948; 83735; 85025; 85027; 85610; 96372; 96374; 99285; A9270; C9113; J1170; J1650; J3480; J7030; J7050; S0164; XXXXX

== ENCOUNTER 2019-02-07 15:08 | Inpatient (IN) ==
[2019-02-07] MEDS ORDERED: NS 1,000 ML IV ONE (15:55)
--- NOTE | 2019-02-07 16:18 | Diag Imaging Result Doc PS360 ---
EXAM: FLAT/UPRIGHT ABD/1 VIEW CHEST 02/07/2019 HISTORY: left upper quadrant pain TECHNIQUE: Flat and upright abdomen with AP chest COMMENT: There is a pleural fluid collection on the left. There is opacification of the left lower lobe and lingula obscuring the heart border with hazy opacity throughout the remaining aerated apex. The right lung remains clear. There are calcified nodes in the right tracheobronchial region. Compared to the previous examination of 11/25/2018 the opacification of the left lung has worsened. There is small bowel gas without evidence of dilatation. There is some stool in the ascending colon. There is no evidence for organomegaly or mass. There is no evidence of free air. IMPRESSION: Worsening atelectasis and/or pneumonia left lower lobe and lingula. Left pleural effusion. Nonspecific abdomen. Electronically signed by Christ Lacy 02/07/2019 4:16 PM
[2019-02-07] MEDS ORDERED: TYLENOL PO ONE (16:29)
[2019-02-07 16:44] LABS: HEMOGLOBIN 8.3 g/dL (12.0-16.0); IMM GRAN# 0.03 X1000 (0.0-0.04); IMM GRAN% 0.5 % (0.0-0.5); LYMPH# 0.49 X1000 (1.2-3.4); LYMPH% 8.9 % (20.5-51.1); MCH 31.6 PG (27-31); MCHC 30.7 g/dL (33-37); MCV 102.7 FL (81-99); MONO# 0.27 X1000 (0.11-0.59); MONO% 4.9 % (1.7-9.3); MPV 8.2 FL (7.4-10.4); NEUT# 4.69 X1000 (1.4-6.5); NEUT% 85.7 % (42.2-75.2); PLT 246 X1000 (130-400); RBC 2.63 XMIL (4.2-5.4); RDW 15.6 % (11.5-14.5); WBC 5.48 X1000 (4.8-10.8)
[2019-02-07 16:58] LABS: AGAP 13; ALB/GLOB RATIO 1.2; ALBUMIN 3.5 g/dL (3.5-5.0); ALKALINE PHOSPHATASE 102 U/L (32-104); BUN 8 mg/dL (8-22); CHLORIDE 98 mmol/L (98-107); COSMO 273; CREATININE 0.5 mg/dL (0.5-0.9); ESTIMATED GFR > 60; GLUCOSE 82 mg/dL (70-104); GOT 26 U/L (10-30); GPT 69 U/L (10-36); POTASSIUM 3.8 mmol/L (3.5-5.1); SODIUM 138 mmol/L (136-145); TCO2 27 mmol/L (25-35); TOTAL BILIRUBIN 0.34 mg/dL (0.20-1.00); TOTAL PROTEIN 6.5 g/dL (6.3-8.3)
[2019-02-07] MEDS ORDERED: LEVAQUIN 750 MG/D5W 750 MG/150 ML IVPB IV ONE (20:26)
[2019-02-07] MEDS ORDERED: MORPHINE IV ONE (20:27)
[2019-02-08] MEDS ORDERED: XANAX PO PRN (01:51)
[2019-02-08] MEDS ORDERED: ZOFRAN IV PRN (01:51)
[2019-02-08] MEDS ORDERED: NARCAN IV PRN (02:28)
[2019-02-08] MEDS ORDERED: PATIENT'S OWN MED IV SCH (02:30)
[2019-02-08] MEDS: HUMULIN R SUBQ SCH ×4 (06:22→20:14)
[2019-02-08] MEDS ORDERED: NS 1,000 ML IV SCH (06:30)
[2019-02-08] MEDS ORDERED: VANCOMYCIN IV PER PHARMACY MISC SCH (06:30)
[2019-02-08] MEDS: ZOSYN 3.375 GM in NS 50 ML IV SCH ×3 (06:39→20:10)
[2019-02-08] MEDS ORDERED: VANCOMYCIN 2,000 MG in NS 500 ML IV ONE (07:00)
[2019-02-08 07:15] LABS: EOS# 0.01 X1000 (0.0-0.7); EOS% 0.2 % (0.0-10.0); HEMATOCRIT 28.2 % (37.0-47.0); HEMOGLOBIN 8.4 g/dL (12.0-16.0); IMM GRAN# 0.03 X1000 (0.0-0.04); IMM GRAN% 0.6 % (0.0-0.5); LYMPH# 0.46 X1000 (1.2-3.4); LYMPH% 9.5 % (20.5-51.1); MCHC 29.8 g/dL (33-37); MCV 104.1 FL (81-99); MONO# 0.27 X1000 (0.11-0.59); MONO% 5.6 % (1.7-9.3); MPV 8.3 FL (7.4-10.4); NEUT# 4.06 X1000 (1.4-6.5); NEUT% 84.1 % (42.2-75.2); PLT 247 X1000 (130-400); RBC 2.71 XMIL (4.2-5.4); WBC 4.83 X1000 (4.8-10.8)
[2019-02-08 07:23] LABS: INR 1.1; PROTIME 15.1 Seconds (11.0-16.0); PTT 26.1 Seconds (22.3-41.8)
[2019-02-08] MEDS: DUONEB (A & A) INH PRN ×5 (07:26→23:19)
[2019-02-08 07:40] LABS: AGAP 11; ALB/GLOB RATIO 1.1; ALBUMIN 3.4 g/dL (3.5-5.0); ALKALINE PHOSPHATASE 104 U/L (32-104); BUN 6 mg/dL (8-22); CALCIUM 8.5 mg/dL (8.8-10.2); CHLORIDE 99 mmol/L (98-107); COSMO 272; CREATININE 0.5 mg/dL (0.5-0.9); ESTIMATED GFR > 60; GLUCOSE 112 mg/dL (70-104); GOT 29 U/L (10-30); GPT 73 U/L (10-36); POTASSIUM 3.4 mmol/L (3.5-5.1); SODIUM 137 mmol/L (136-145); TCO2 27 mmol/L (25-35); TOTAL BILIRUBIN 0.35 mg/dL (0.20-1.00); TOTAL PROTEIN 6.5 g/dL (6.3-8.3)
[2019-02-08] MEDS: TYLENOL PO PRN (07:41)
[2019-02-08] MEDS: CELEXA PO SCH (08:39)
[2019-02-08] MEDS: PERICOLACE PO SCH ×2 (08:39→20:13)
--- NOTE | 2019-02-08 08:46 | Diag Imaging Result Doc PS360 ---
EXAM: CT THORAX/ABD/PELVIS W/CON INDICATION: Diminished L Lung Sounds,Left Chest Wound,SOB TECHNIQUE: This exam was performed using automated exposure control, adjustment of mA or kV according to patient size, and/or use of iterative reconstruction technique. COMPARISON: CT abdomen and pelvis without contrast dated 12/08/2018 and CTA chest dated 08/28/2018 FINDINGS: CHEST: There is extensive malignant infiltration of the left pleural space and there are innumerable metastatic foci throughout both lungs. Many of the metastatic foci are larger than the previous abdominal CT in November 2018. For reference, there is a 1.3 cm nodule at the posterior right lung base (1.0 cm previously). There is moderate bilateral hilar and mediastinal lymphadenopathy. There is some narrowing of the left pulmonary arteries related to the surrounding lymphadenopathy and pleural masses. There is extensive groundglass opacity throughout the entire left lung and there are prominent interlobular septae on the left suggesting lymphangitic spread of carcinoma. There is skin thickening and multiple masses associated with the right breast. There is evidence of a left mastectomy and there is an infiltrative chest wall mass on the left that is contiguous with the pleural space disease. There is a lytic lesion involving the T12 vertebral body on the left extending into the left pedicle consistent with metastatic disease. There are erosive changes involving the posterior 10th rib on the left adjacent to the malignant pleural infiltrative mass. ABDOMEN/PELVIS: There are multiple low dense metastatic lesions in the liver. The largest is in the medial segment of the left hepatic lobe abutting the falciform ligament measuring up to 3.1 x 2.7 cm axially. It was probably present on the previous abdominal CT but is difficult to see as the previous study was not performed with contrast. In any case, it is significantly larger. The gallbladder, spleen, and pancreas are grossly unremarkable. There is a left adrenal mass consistent with a metastatic lesion measuring up to 4.0 x 3.1 cm axially (3.6 x 2.6 cm previously). There is also a 1.3 cm new right adrenal nodule that is suspicious for a metastatic lesion. The kidneys and urinary bladder are essentially unremarkable. There is small volume ascites in the pelvis. There is a small mass involving the anterior uterine wall on the right that probably represents a fibroid. No focal bowel wall thickening or bowel obstruction is appreciated. The GI tract is essentially unremarkable, otherwise. No discrete abdominal or pelvic bony metastatic lesion is identified. IMPRESSION: 1.Extensive metastatic disease to the left pleural space and both lungs that has worsened during the interval. 2.Worsened metastatic disease to the liver. 3.Worsened left adrenal metastatic disease and development of a small right adrenal nodule that probably represents a metastatic focus. 4.Consolidation involving the aerated portion of the left lung that probably represents a combination of pneumonia, atelectasis, and lymphangitic spread of carcinoma. 5.Small volume free fluid in the pelvis. 6.Bony metastatic disease to the T12 vertebra and at least the 10th rib on the left. 7.Skin thickening and multiple confluent masses associated with the right breast. 8.Chest wall mass on the left that is confluent with the pleural space disease. Electronically signed by Ricky Chavez 02/08/2019 8:44 AM
[2019-02-08] MEDS ORDERED: DILAUDID IV PRN (09:55)
--- NOTE | 2019-02-08 10:00 | HISTORY AND PHYSICAL ---
PRIMARY CARE PROVIDER: Dr. Brinda Omalley ONCOLOGIST: Dr. Page. CHIEF COMPLAINT: Worsening pain. HISTORY OF PRESENT ILLNESS: The patient is a 58-year-old female who was previously receiving treatment for metastatic breast cancer. She does now have metastases to brain, lungs, and liver. She was previously treated with chemo and radiation though it was noted in previous notes that the patient was not responding well to their treatment, and that she did have rather aggressive disease. On her most recent discharge, she was discharged home to the care of hospice. They were not doing any further treatment for her cancer other than pain control. She states that she has not had chemotherapy since 10/21/2018, and has not had radiation since 11/25/2018. The patient had been at home on hospice though was brought into the hospital this evening for worsening pain as well as now the patient is wanting to seek more aggressive care for her symptoms at this time. The patient has had reported headache and dizziness. She is not denying any chest but is reporting a dry cough, and some shortness of breath that had started over the past couple of days. She denies any fever, body aches, or chills. Though she is reporting worsening right and left lower chest pain, and right and left upper abdominal pain along the rib margin bilaterally. She also is reporting a pain that radiate into her bilateral flanks around her back. She also is complaining of left lower abdominal pain as well. She denies any nausea or vomiting. She does report occasional problems with constipation, but does states that she does have a bowel regimen that she uses at home and has been having bowel movements every couple of days now. She denied any hematochezia or melena. She denies any dysuria or urinary frequency. She denies any pain, numbness or tingling or swelling in her extremities. The patient reports that her pain that she is having in her abdomen is sharp though it is intermittent. The patient does have a pain pump she utilizes at home at this time. She does have a Dilaudid pain pump which has a basal rate current she does have a Dilaudid pain pump that has a concentration of 1 mg per 1 mL. She does have a basal rate of 2 mL/h and a p.r.n. bolus of 0.5 mL that can be given every 30 minutes as needed. She also does wear a total of 250 mcg fentanyl patches transdermally q.72 hours. She has two 100 mcg patches and 150 mcg patch placed. Also, she does take Roxanol at home which has a concentration of 10 mg per 1 mL. The prescription is actually written for 0.25 mL to 1 mL every 2 hours as needed. This would be a dose 2.5 mg to 10 mg q.2 hours as needed though the patient's states that at home he has been given her 5 mg as often as every 30 minutes. Upon the patient's evaluation in the ER, the ER staff did contact [facility] which is the hospitalist service she was utilizing, and spoke with them. They noted that she does not meet criteria for hospice any more due to they are searching for more aggressive care outside of Hospice. The patient wants to be discharged, and they will have to reset up her Hospice. Dr. Ewing as well as myself did speak with the patient and her at length. The patient is aware that she has a terminal illness of metastatic breast cancer with signs that she has worsening metastasis and disease advancement. They are aware that Dr. Page had not been providing any further chemo or radiation treatments. Though at this time, the patient does wish to remain a full code. She does want chest compressions, intubation, defibrillation, and emergency cardiac medicines if her condition was to worsen. She does want to treat other diagnoses, complications, and symptoms as they arise such as if she was to get pneumonia she does want to receive antibiotics for this. She also does want to receive medications for her other medical problems. We did discuss if the patient at this time was still considering a possible hospice, the patient and her stated that they wanted to think about it, and would get back with us about this at a later time. We also did discuss that if the patient does wish to have aggressive treatment measures and is going to be a full code, we will have to be safe and cautious with the amount of pain medications that she will be receiving. As previously mentioned, the patient at home has been receiving Dilaudid pain pump, oral Roxanol, and fentanyl patch for pain control. Though given her change in decision of treatment plan as well as remaining a full code with wanting aggressive treatment measures, we have adjusted her pain medicine. She has been made aware that we will only do the Dilaudid pain pump at this time and the fentanyl patches, we are holding her oral Roxanol. She has been placed on continuous cardiac telemetry and continuous pulse oximetry. The patient did state verbal understanding. The patient did state verbal understanding, and understanding of reasoning for this decision. She has been placed for inpatient admission for further treatment and evaluation. REVIEW OF SYSTEMS: A 14 point review of systems was conducted with the patient, and all were negative except for pertinent positives mentioned above in HPI. PAST MEDICAL HISTORY: 1. Breast cancer with metastasis to lungs, brain and liver previously treated with chemotherapy and radiation followed by Dr. Page. 2. Hyperlipidemia. 3. Hypertension. 4. Diabetes mellitus. 5. Degenerative disk disease. 6. Recent diagnosis of acute DVT of the left peroneal vein though at this time other than while the patient was admitted to the hospital, she has not been receiving any anticoagulation treatment. PAST SURGICAL HISTORY: 1. Status post lumbar laminectomy in 2010. 2. Status post bilateral mastectomy. 3. Port placement. SOCIAL HISTORY: The patient is . She does live with her . He was present at bedside during her examination. She has 4 children. She denies any illicit drug use in the past. She only consumed alcohol in a social setting. FAMILY HISTORY: The patient denies any known history of heart disease, lung disease, CVA, diabetes mellitus or cancer in her mother, father, brothers and sisters. ALLERGIES: Patient has no known allergies. HOME MEDICATIONS: 1. Alprazolam 0.25 mg p.o. t.i.d. p.r.n. for anxiety. 2. Citalopram hydrobromide 10 mg p.o. daily. 3. Dexamethasone 1 tablet p.o. 4 times a day p.r.n. 4. Fentanyl patch 100 mcg/hour patch 2 patches topically q.3 days. 5. Fentanyl patch 50 mcg/hour 1 patch transdermally q.3 days. 6. Gabapentin 600 mg p.o. at bedtime. 7. Metformin extended release 1000 mg p.o. b.i.d. 8. Roxanol 0.25 to 1 mL p.o. q.2 hours p.r.n. for pain with a concentration of 10 mg per 1 mL. 9. Zofran 80 mg p.o. q.8 h. p.r.n. for nausea. 10. Compazine 200 p.o. q. 6 h. p.r.n. for nausea. 11. Senna S laxative tablet 2 tablets p.o. b.i.d. DIAGNOSTIC DATA/LABORATORY: 1. White blood cell count 0.48, hemoglobin 8.3, hematocrit 27, platelet count of 246,000. PT 15.1. INR of 1.1. PTT 26.1. Sodium 138, potassium 3.8, chloride 98, serum bicarb 27, BUN 8, creatinine 0.5. GFR greater than 60. Glucose 82. Calcium 9. Liver function test within normal limits except for an ALT that was slightly elevated at 69. 2. Flat and upright of abdomen with 1 view chest showed worsening atelectasis and/or pneumonia in the left lower lobe and pleural lingula. Left pleural effusion. 3. CT of thorax, abdomen and pelvis with contrast showed findings consistent with diffuse metastasis increased since previous study. There is a new right shift of the mediastinum related to progressive metastasis in the left chest. There is also increased consolidation of the left lung compressive atelectasis with possible component of pneumonia. There is new free fluid in the pelvis. There is increased hepatic metastasis. Also noted was a 1.6 right adrenal mass. There was a mass noted in the anterior uterine body which was likely to be a fibroid. There is also sharon-diaphragmatic and para-aortic celiac adenopathy moderate overall. PHYSICAL EXAMINATION: VITAL SIGNS: Temperature 98 degrees, heart rate 83, respirations 18, blood pressure 97/56 with a MAP of 65. Oxygen saturation is 97% on room air. GENERAL: Ms. Lee is a pleasant 58-year-old female. She was resting in the bed. She was in no acute distress. She was awake, alert and able to answer all questions appropriately. HEENT: Head is atraumatic, normocephalic. Pupils are equal, round, and reactive to light, were 3 mm bilaterally and brisk. Oral mucous is moist. Oropharynx was clear. Neck is supple. Trachea midline. CARDIOVASCULAR: Patient has S1 and S2 present. No murmurs, gallops or rubs appreciated with a regular rate and rhythm. PULMONARY: The patient has symmetrical chest expansion bilaterally. Lung sounds in the right lung deutsch were clear to auscultation, but she did have decreased lung sounds noted in all lung deutsch on the left side. This was worse in the lower left lung deutsch. ABDOMEN: Soft. Nontender, though her abdomen does appear to be slightly distended. She was tender upon palpation of the left and right upper abdomen and into the lower chest along the rib margin. She was also tender in her bilateral flanks, and this radiated around to the mid and lower back. Bowel sounds were present in all 4 quadrants and were normoactive. EXTREMITIES: No cyanosis or edema noted at this time. Pulse, motor and sensory were intact in all extremities. Radial pulses and pedal pulses were 2+ bilaterally. Capillary refill is less than 3. INTEGUMENTARY: The patient's skin is pink, warm, and dry though she does have a wound noted to the left chest area. This lies horizontally in a linear shape. The patient reports that it has been drained what she describes as bloody drainage though there does not appear to be active drainage at this time. The patient states this has developed within the last month or so. NEUROLOGICAL: Patient is alert and oriented to person, place, time, and situation. She is able to move all extremities. There does not appear to be any new focal neurological deficits noted at this time. She denies any pain, numbness or tingling. ASSESSMENT AND PLAN: 1. Intractable pain secondary to metastatic breast cancer. The patient at this time is declining further hospice treatment. She does want to pursue more aggressive treatment measures. She has decided to make herself a full code at this time. We will provide continued pain management with her previously prescribed Dilaudid pain pump as well as her fentanyl patches as we have held her additional oral Roxanol pain medication at this time. This decision was made given that the patient is now wanting to pursue more aggressive treatment measures as previously mentioned in the above HPI. We will continue to follow along. 2. Breast cancer with metastasis to lungs, liver and brain with recent CT findings, and assessment findings which show worsening disease progression. The patient did previously received chemotherapy and radiation. We have placed a consult with Dr. Page. We will await her evaluation, and further recommendations for management. 3. Possible pneumonia. The patient's CT did show increased consolidation in the left lung with compressive atelectasis and a possible component of pneumonia. Given this, we will go ahead and place the patient on antjibiotic overage. At this time, we have obtained blood cultures and we have ordered a sputum culture. She has been recently admitted to the hospital within the past 2 months. We will go ahead and cover her for health care associated pneuomina as well with antibiotics of vancomycin and Zosyn IV. We will obtain aggressive pulmonary toilet with incentive spirometry, frequent turns, cough, deep breathing and DuoNeb treatments. 4. Diabetes mellitus. We have placed this patient on sliding scale and Regular insulin per low- dose protocol with pattern finger stick blood sugars. We have [*]receive contrast with a CT study. 5. Recent diagnosis of an acute DVT of the left peroneal vein. This was diagnosed on 11/25/2018. The patient was admitted twice in November shortly after this diagnosis, and did receive Lovenox while in the hospital though she was not discharged with any further anticoagulation treatment for her DVT. From what I understand, this was secondary to at the time they were not wanting to proceed with aggressive treatment measures as well as she does have a brain metastasis. We will hold JUAN JOSÉ's or SCD's at this time given her recent DVT of which she has not received anticoagulation for. We will hold anticoagulant's given her metastatic brain disease. We will defer further treatment management of this to Dr. Hurst once she has evaluated the patient. 6. Left chest wound. The patient states that this has developed in the past month. On previous CT, she was noted to have an infiltrative chest wall mass on the left. This wound could be related to her metastatic disease. We have ordered for wound care, cleansing and dressing as well as a consult with the wound care nurse. We will await her evaluation and further recommendations for management. We have ordered a wound culture to be obtained if possible of the drainage that the patient has been reporting. 7. Resuscitation status. As previously mentioned in above HPI, the patient at this time does wish to have aggressive treatment measures initiated. She does want to be a full code with chest compressions, intubation, defibrillation and emergency cardiac medications to be given. She is alert and oriented to person, place, time, and situation. Her is at bedside. She was in agreement with the patient's decision. An order for this has been placed in the computer. 8. She has been placed on the medical floor of telemetry. She will have vital signs q.4 hours. She is also on continuous pulse oximetry. We will do strict intake and output. She will be on a diabetic diet. We have ordered repeat CBC and CMP in the morning as well as a venous ultrasound of the left leg for re-evaluation of her previous diagnosis of DVT. 9. Further orders and recommendations pending hospital course, diagnostic studies, and physician's evaluation. Dictated by DEVON Leal for Cornell Gill MD cc: Cornell Gill MD
[2019-02-08] MEDS: DECADRON PO SCH (10:09)
[2019-02-08] MEDS ORDERED: LR 1,000 ML IV ONE (11:05)
[2019-02-08] MEDS: MIRALAX PO SCH ×2 (12:44→20:11)
[2019-02-08] MEDS: DILAUDID PO PRN ×3 (12:44→21:30)
--- NOTE | 2019-02-08 12:48 | PROGRESS NOTE ---
DATE: 02/08/2019 INTERVAL HISTORY: Ms. Lee was admitted for intractable pain related to her cancer, dizziness, dry cough, shortness of breath, and bilateral rib pain of about 2 days' duration. She does have a prior history of widely metastatic breast cancer. While arriving to the emergency room, she was found to have left-sided lung consolidation, worsening metastatic disease, and hypotension. Apparently, patient was on hospice service but had decided to be taken off hospice service and on wanted to be Full Code, so she is being currently admitted for further management of her medical illness. SUBJECTIVE: At the time of my evaluation, patient is lying in the bed. She is alert. Denies any new symptoms. We discussed about physical exam findings, lab findings, plan, and answered all of her questions. Her family is at not bedside and so I have not addressed the goals of care at the moment. VITALS: Temperature 99.2 degrees, pulse 87, blood pressure 85/51, respiratory rate of 18, saturation 96% on room air. PHYSICAL EXAMINATION: General: She does not appear in any acute distress. Oral cavity is moist. Decreased air entry in left infrascapular region. No wheeze, rhonchi, or crackles. Adequate air entry on right hemithorax. Abdomen: Soft. She has marked hepatomegaly. Tenderness, especially on the right upper quadrant and left lower quadrant. No suprapubic tenderness. No lower extremity edema. Neurologic: She is alert oriented x3. LABS: Suggestive of no leukocytosis, macrocytic anemia. Normal platelet count. Normal coagulation. Hypokalemia, in acceptable range, and normal kidney function. Blood cultures are in lab. Urine antigens have been ordered. Chest, abdomen, and pelvis CT is suggestive of extensive metastatic disease involving the left pleural space and both lung deutsch with interval worsening, worsening metastasis to the liver, left adrenal metastasis and right adrenal metastasis, left- sided upper lobe pneumonia, free fluid in the pelvis, multiple metastases. ASSESSMENT AND PLAN: 1. Left upper lobe pneumonia. Follow up final blood culture results, urine antigens. She has not been able to make sputum. Continue intravenous vancomycin and intravenous Zosyn. Continue oxygenation to maintain saturation more than 94% as required. 2. Intractable pain involving abdomen, bilateral rib cage, and dry cough, likely in the setting of breast cancer with widespread metastasis to bilateral lungs, liver, adrenal, and bone. The patient was on ADVANCED MANAGER pump at home. Considering she is Full Code and hypotensive currently, I will stop the ADVANCED MANAGER pump and will give her as needed oral acetaminophen, oral hydromorphone, and intravenous hydromorphone as needed. I will also continue her home Decadron with a fentanyl patch. She is listed to be taking 250 mcg of fentanyl patch at home. I will continue home gabapentin. I will also continue her home alprazolam and citalopram for history of anxiety. I will keep her on MiraLAX and senna to avoid constipation. 3. Disposition. The patient remains on medical floor as we manage her medical illnesses. If she remains hypotensive, I would consider either transferring her to intensive care unit for intravenous vasopressors or start her on oral midodrine. Meanwhile, I am awaiting family to come back. The palliative care team has been consulted and my plan is to address goals of care once the family is around. Further medical management plan would be based on that. I explained this to patient and answered all of her questions. cc: George Klein MD
[2019-02-08] MEDS ORDERED: LOVENOX SUBQ SCH (13:45)
[2019-02-08] MEDS: DILAUDID IV PRN ×2 (17:36→19:56)
[2019-02-08] MEDS: NEURONTIN PO SCH (20:13)
[2019-02-08] MEDS: LOVENOX SUBQ SCH (20:13)
[2019-02-08] MEDS ORDERED: NEURONTIN PO SCH (21:00)
[2019-02-08] MEDS: VANCOMYCIN 1,500 MG in NS 250 ML IV SCH (21:32)
[2019-02-09] MEDS: ZOSYN 3.375 GM in NS 50 ML IV SCH ×4 (02:19→18:54)
[2019-02-09] MEDS: DILAUDID IV PRN ×3 (04:46→14:24)
[2019-02-09] MEDS: TYLENOL PO PRN (04:49)
[2019-02-09] MEDS: DILAUDID PO PRN ×3 (05:44→20:55)
[2019-02-09] MEDS: HUMULIN R SUBQ SCH ×4 (06:35→20:57)
[2019-02-09] MEDS: VANCOMYCIN 1,500 MG in NS 250 ML IV SCH (09:30)
[2019-02-09] MEDS: CELEXA PO SCH (09:32)
[2019-02-09] MEDS: DECADRON PO SCH (09:32)
[2019-02-09] MEDS: PERICOLACE PO SCH ×2 (09:32→20:56)
[2019-02-09] MEDS: LOVENOX SUBQ SCH ×2 (09:32→20:56)
[2019-02-09] MEDS: MIRALAX PO SCH ×2 (09:33→21:03)
[2019-02-09] MEDS ORDERED: DILAUDID IV ONE (16:00)
--- NOTE | 2019-02-09 16:39 | PROGRESS NOTE ---
DATE: 02/09/2019 INTERVAL HISTORY: I was informed by the vascular team that the patient had a peroneal vein deep venous thrombosis small fragment on the lower extremity of left side. The patient's pain was reasonably well controlled. She is feeling stronger. Palliative Care had discussed with the patient's family as well as her oncologist and apparently there are plans of starting her on normal therapy for metastatic breast cancer outpatient. She has been taken of hospice services. SUBJECTIVE: Patient is feeling better today than before. Her sister is at bedside. The patient denies any new complaints except generalized body pain, especially abdomen and chest. Discussed about exam findings, plan, and answered all of her questions. VITALS: Detect temperature of 98.7 degrees, pulse 84 respiratory rate 16, blood pressure 110/59, saturating 98% on room air. PHYSICAL EXAMINATION: In mild distress because of pain.HEENT: Oral cavity is moist. Lungs: Decreased air entry with inspiratory crackles left infrascapular region. No wheeze or rhonchi. Adequate air entry on right. Chest: She has a right-sided chest port. She also has a bilateral breast wound which are dressed. Abdomen: Soft. She has hepatomegaly and tenderness, hypoactive bowel sounds. Extremities: No lower extremity edema. Neurologic: She is alert oriented x3. LABS: No new labs today. MICROBIOLOGY: Blood culture data are in the lab. Urine Streptococcus Legionella antigen is also in lab. Sputum culture has not been collected. ASSESSMENT AND PLAN: 1. Left upper lobe pneumonia. Follow up with final blood culture results urine antigens. Continue intravenous vancomycin and Zosyn and oxygen to maintain saturation more than 94%. 2. Intractable pain involving abdomen, bilateral rib cage and back, likely in the setting of widely metastatic breast cancer. Continue intravenous hydromorphone, p.o. hydromorphone on top of fentanyl patch and acetaminophen with dexamethasone. Her pain is reasonably well controlled at the moment. At the time of discharge she would go back to her home dose of RESEARCH SOIL SCIENTIST hydromorphone pump. 3. Acute left peroneal vein lower extremity deep venous thrombosis. I will continue patient on enoxaparin. I will direct the patient's nurse to teach her how to inject enoxaparin and if there are no cost issues, we will consider discharging her on enoxaparin. If there are cost issues, then I will consider changing it to Eliquis for the sake of compliance. 4. Metastatic breast cancer involving bilateral lungs, liver, adrenal and bone. The patient was previously on hospice service. However, late now family considering they wanted to pursue aggressive measures and she has been in the hospital. Hospice services have been revoked. The patient and family wants to pursue aggressive care. The plan is to potentially consider another therapy for her metastatic breast cancer. Hematology oncology on board. DISPOSITION: If the patient is feeling better as she is doing today and culture data negative, plan is to change antibiotics to p.o. and discharge her home potentially later tomorrow or day after tomorrow and then home health services would take care of her outpatient pain through RESEARCH SOIL SCIENTIST pump. The patient would follow up with Hematology Oncology to discuss further treatment options. Plan of care discussed with the patient and her sister at bedside. All of their questions have been satisfactorily answered. cc: George Klein MD MTDD
[2019-02-09] MEDS: DUONEB (A & A) INH PRN (19:35)
--- NOTE | 2019-02-09 19:38 | Extremity Venous Study ---
PROCEDURE NAME: Venous U/S Left Leg - 02/08/2019 REQUESTING PHYSICIAN: Cornell Gill MD. CARNIVAL WORKER: Kendall. INDICATIONS: Follow up DVT. Previous comparison from 11/25/2018. EQUIPMENT: [employer] Vivid E9 ultrasound system with 9 L-D transducer. FINDINGS: Images of the left lower extremity venous system with comparison shot to the right common femoral vein were obtained in both sagittal and transverse planes. Doppler was used to evaluate veins for spontaneity, phasicity, respiratory excursion, and digital augmentation. RESULTS: Chronic appearing left peroneal DVT noted. This is essentially stable from previous study. INTERPRETATION: Small amount of DVT in the peroneal vein, which is chronic from previous study. No acute deep venous thrombosis or superficial venous thrombosis noted. cc: Kvng Marroquin MD
--- NOTE | 2019-02-09 20:31 | HEMO/ONC PROGRESS NOTE ---
DATE: 02/09/2019 SUBJECTIVE: Ms. Lee is sitting in her hospital bed. She is in no acute distress. LABS AND STUDIES: No new CBC or CMP for today OBJECTIVE: Vital Signs: Temperature 98.7, heart rate 84, respirations 16, blood pressure 107/59, O2 saturation 93% on room air. CV: S1, S2 heard. No murmurs, gallops, rubs appreciated. Respiratory: Chest is essentially clear to auscultation. Gastrointestinal: Abdomen is soft. She does have some left upper quadrant tenderness. Musculoskeletal: The patient has left chest wall tenderness as well. Extremities: Patient has no lower extremity edema. Neurologic: Patient is alert and oriented. ASSESSMENT AND PLAN: 1. Metastatic breast cancer. Patient no longer wants to be on hospice care. She is full code. We have sent off additional testing. Are considering proceeding with outpatient treatment once she is discharged. She will follow up in our office for further planning upon discharge. 2. Intractable pain. Seems to be well managed currently. CODING ANALYST has been discontinued. Continue current pain management per primary team. We will also gladly assist with the patient's pain management while in the hospital, but definitely once she is out of the hospital. 3. Pneumonia. Continue current treatment with IV antibiotics as well as nebulizer treatments. 4. Diabetes. Continue sliding scale insulin per the primary team. Dictated by DUNG Ibanez for Sofiya Page MD cc: Sofiya Page MD
[2019-02-09] MEDS: NEURONTIN PO SCH (20:55)
[2019-02-10] MEDS: DILAUDID PO PRN ×5 (00:50→21:38)
[2019-02-10] MEDS: ZOSYN 3.375 GM in NS 50 ML IV SCH ×3 (00:51→14:00)
[2019-02-10] MEDS: HUMULIN R SUBQ SCH ×4 (06:04→21:42)
[2019-02-10] MEDS: DILAUDID IV PRN ×4 (06:12→18:59)
[2019-02-10 06:59] LABS: EOS# 0.01 X1000 (0.0-0.7); EOS% 0.2 % (0.0-10.0); HEMATOCRIT 26.3 % (37.0-47.0); HEMOGLOBIN 8.1 g/dL (12.0-16.0); IMM GRAN# 0.02 X1000 (0.0-0.04); IMM GRAN% 0.3 % (0.0-0.5); LYMPH# 0.56 X1000 (1.2-3.4); LYMPH% 9.4 % (20.5-51.1); MCHC 30.8 g/dL (33-37); MONO# 0.36 X1000 (0.11-0.59); MONO% 6.1 % (1.7-9.3); MPV 8.4 FL (7.4-10.4); NEUT# 4.99 X1000 (1.4-6.5); PLT 249 X1000 (130-400); RBC 2.53 XMIL (4.2-5.4); RDW 16.1 % (11.5-14.5); WBC 5.94 X1000 (4.8-10.8)
[2019-02-10 07:16] LABS: AGAP 14; BUN 8 mg/dL (8-22); CALCIUM 8.1 mg/dL (8.8-10.2); CHLORIDE 101 mmol/L (98-107); COSMO 277; ESTIMATED GFR > 60; GLUCOSE 82 mg/dL (70-104); POTASSIUM 3.2 mmol/L (3.5-5.1); SODIUM 140 mmol/L (136-145); TCO2 25 mmol/L (25-35)
[2019-02-10] MEDS: DECADRON PO SCH (08:56)
[2019-02-10] MEDS: PERICOLACE PO SCH ×2 (08:56→21:38)
[2019-02-10] MEDS: TYLENOL PO PRN (08:56)
[2019-02-10] MEDS: CELEXA PO SCH (08:56)
[2019-02-10] MEDS: LOVENOX SUBQ SCH (08:57)
[2019-02-10] MEDS: MIRALAX PO SCH ×2 (08:57→21:40)
[2019-02-10] MEDS ORDERED: VANCOMYCIN 1,500 MG in NS 250 ML IV SCH (09:00)
[2019-02-10] MEDS ORDERED: DURAGESIC 100 MICROGM/HR PATCH TD SCH (09:00)
[2019-02-10] MEDS ORDERED: DURAGESIC 50 MICROGM/HR PATCH TD SCH (09:00)
[2019-02-10] MEDS ORDERED: MAGNESIUM SULFATE 2 GM/S.W.I. 2 GM/50 ML IVPB IV ONE (13:35)
[2019-02-10] MEDS: LEVAQUIN PO SCH (14:00)
[2019-02-10] MEDS: KLOR-CON PO SCH ×2 (14:00→19:03)
--- NOTE | 2019-02-10 17:25 | PROGRESS NOTE ---
DATE: 02/10/2019 INTERVAL HISTORY: No acute events overnight. The patient states she was able to come out of bed, walk up to the end of the room, and come back. She did get tired, but she was able to do that with physical therapy's help. She is complaining of some cough and expectoration. We discussed about changing her IV antibiotics to something that she can take by mouth. We also discussed about setting up home health. I answered all of her questions. Patient's mother is at bedside. OBJECTIVE: Vital signs: Temperature of 97.8 degrees, pulse 80, respiratory rate 20, blood pressure 90/50. She is saturating 97% on room air. General: Does not appear in any acute distress. HEENT: Oral cavity is moist. Lungs: Air entry adequate on right hemithorax. Significantly decreased air entry with inspiratory crackles left infrascapular region. Cardiovascular: S1, S2 normal. No murmur, rub, or gallop. She has a right-sided chest port. Breasts: She also has bilateral breast wounds which are dressed. Abdomen: Soft. She has hepatomegaly and tenderness in right upper quadrant. Hypoactive bowel sounds. Extremities: No lower extremity edema. Neurologic: She is alert and oriented x3. LABS: Suggestive of no leukocytosis, macrocytic anemia, normal platelet count, hypokalemia which is being repleted. Urine Legionella antigen and streptococcal antigen have been negative. Blood cultures did not have any growth to date. No new imaging. ASSESSMENT AND PLAN: 1. Left upper lobe pneumonia. Blood culture no growth to date. Change intravenous vancomycin and Zosyn to p.o. levofloxacin in anticipation of discharge. She is maintaining good saturation on room air. 2. Intractable pain involving abdomen, bilateral rib cage, and back in the setting of widely metastatic breast cancer. Continue intravenous hydromorphone, p.o. hydromorphone, fentanyl patch, and acetaminophen with dexamethasone. Currently pain reasonably well controlled. She will go back home on [employer] hydromorphone pump to be managed by oncologist. 3. Acute left peroneal vein lower extremity deep vein thrombosis. Change enoxaparin to Eliquis. The patient would have a really high co-pay in paying enoxaparin, so it has been changed to Eliquis. 4. Metastatic breast cancer involving bilateral lungs, liver, adrenal, and bone. Her last actual chemotherapy was in September 2018. She also has had on and of radiation of her brain metastasis and considering aggressive nature of her disease, she was on hospice service before this admission. However, she was readmitted for intractable pain and so hospice services have been revoked and now patient wants further therapy as well. Hematology/Oncology is planning a newer therapy after discharge considering her functional status is still reasonable. 5. Disposition. The patient's antibiotic has been changed to p.o. and she is medically ready to be discharged. I am awaiting home health services hydromorphone [employer] pump set up. The medication on the [employer] pump will be taken care of by Hematology/Oncology as per the information provided to me. Once that is set up, the patient should be able to be discharged home. She should get prescriptions for antibiotics and Eliquis. Depending on that, the patient will be discharged later tonight or early tomorrow. Plan of care discussed with her and her family at bedside. All of their questions have been satisfactorily answered. cc: George Klein MD
--- NOTE | 2019-02-10 17:57 | HEMO/ONC PROGRESS NOTE ---
DATE: 02/10/2019 SUBJECTIVE: Ms. Lee is lying in her hospital bed in no acute distress. OBJECTIVE: Temperature 97.8 degrees, heart rate 80, respirations 20, blood pressure 89/50, O2 saturation 97% on room air. CV: S1, S2 heard. No murmurs, gallops or rubs appreciated. Respiratory: Chest is clear. No respiratory effort.Gastrointestinal: Abdomen is soft. Positive bowel sounds. Musculoskeletal: No obvious bony abnormalities. Extremities: Some trace bilateral lower extremity edema noted. LABORATORY DATA: White blood cells 5.92, hemoglobin 8.1, hematocrit 26.3, platelet count 249,000. ASSESSMENT AND PLAN: 1. Metastatic breast cancer. Considering doing some outpatient chemotherapy once the patient is discharged from the hospital. The patient wants aggressive treatment and no longer wants to be on hospice care. 2. Pneumonia. Continue intravenous antibiotics, oxygen support and nebulizer treatments. 3. Intractable pain. The patient reports that her pain is well managed. She is no longer on patient-controlled analgesia but is on fentanyl patches with p.o. Dilaudid and intravenous Dilaudid p.r.n. She is also getting Tylenol. Continue for the time being. 4. Acute left lower extremity deep venous thrombosis. The patient will continue on Lovenox 1 mcg/kg q.12 hours while in the hospital. Consider transitioning to novel anticoagulant upon discharge. Xarelto is definitely a choice, as is Eliquis. Dictated by DUNG Ibanez for Sofiya Page MD cc: Sofiya Page MD
[2019-02-10] MEDS: DUONEB (A & A) INH PRN (19:57)
[2019-02-10] MEDS: ELIQUIS PO SCH (21:38)
[2019-02-10] MEDS: NEURONTIN PO SCH (21:38)
[2019-02-11] MEDS: DILAUDID IV PRN ×2 (03:45→07:58)
[2019-02-11] MEDS: DUONEB (A & A) INH PRN ×4 (03:54→16:19)
[2019-02-11] MEDS: HUMULIN R SUBQ SCH ×3 (06:02→18:03)
[2019-02-11] MEDS: DILAUDID PO PRN ×2 (06:10→09:42)
[2019-02-11] MEDS: PERICOLACE PO SCH (09:41)
[2019-02-11] MEDS: CELEXA PO SCH (09:41)
[2019-02-11] MEDS: DECADRON PO SCH (09:42)
[2019-02-11] MEDS: MIRALAX PO SCH (09:42)
[2019-02-11] MEDS: ELIQUIS PO SCH (09:42)
[2019-02-11 11:27] VITALS: BP 110/59
[2019-02-11] MEDS: LEVAQUIN PO SCH (14:19)
--- NOTE | 2019-02-12 09:29 | DISCHARGE SUMMARY ---
ADMISSION DATE: 02/07/2019 DISCHARGE DATE: 02/11/2019 DISPOSITION: Home. FOLLOW-UP: 1. Dr. Brinda Omalley. 2. Dr. Page. 3. [facility]. CONSULTATION DURING THIS ADMISSION: Heme-Onc was consulted. Patient was seen by Dr. Page. INVASIVE PROCEDURES DONE DURING ADMISSION: None. IMAGING STUDIES OF SIGNIFICANCE: 1. KUB did show worsening atelectasis and pneumonia left lower lobe and lingular. Left pleural effusion. 2. A CT scan of the chest, abdomen and pelvis showed an extensive metastatic disease of the lungs everywhere. 3. Doppler ultrasound showed chronic appearing left peroneal DVT. ADMISSION DIAGNOSES: 1. Intractable pain. 2. Breast cancer with metastases. 3. Possible pneumonia. DIAGNOSES AT THE TIME OF DISCHARGE: 1. Left upper lobe pneumonia. 2. Intractable pain secondary to metastatic breast cancer. Patient is currently on G[employer] ATTENDANT pump. 3. Acute left peroneal vein deep venous thrombosis. 4. Bilateral breast cancer with metastases to everywhere (stage IV disease). 5. Generalized weakness and deconditioning. 6. Macrocytic anemia. 7. Poor performance status. PRESENTING COMPLAINT: Worsening pain. HISTORY OF PRESENTING COMPLAINT: Ms. Lee is a 58-year-old female who is known to have metastatic breast cancer. I understand she was on hospice at one point. However, her pain was not under control so she decided to come to the emergency department where she was evaluated and admitted for pain management. HOSPITAL COURSE: The patient was also found to have pneumonia. She was admitted to the hospital, and was started on IV antibiotics. Pain was controlled with IV medication. A decision was made ultimately to start her on a GYM ATTENDANT pump. Oncology was consulted. Patient was seen by Dr. Page. Ms. Lee pain got under control. Both home health and home infusion company were consulted, and patient was seen. Today, I saw her and she was eating her lunch. Family members were at the bedside. She says she was feeling better. She is therefore going to be discharged in stable condition. She is currently on the GYM ATTENDANT pump that she would go home on. She would be followed up by her oncologist. At the time of the discharge, there were not any pending labs or imaging studies. Her current vitals, blood pressure is 110/59, pulse of 91, respirations 19, and temperature 98.5. The patient is saturating 95% on room air. TIME SPENT FOR DISCHARGE: 37 minutes. cc: Kareem Reyes MD
[2019-02-17] MEDS ORDERED: ELIQUIS PO SCH (21:00)
== END 2019-02-11 22:00 | disposition home health service (06) | DRG 947 ==
LOC: ED 15:08 → SUATTDRO 23:16 → 3N 23:16
PROVIDERS: ATTEND Internal Medicine
CPT/HCPCS: 71260; 74022; 74177; 80048; 80053; 80202; 82948; 85025; 85610; 85730; 87040; 87449; 87899; 93971; 94640; 94762; 94799; 96365; 96375; 97116; 97162; 97530; 99285; A9270; J1170; J1650; J1956; J2270; J2405; J2543; J3370; J3475; J7030; J7040; J7050; J7120; J8540; Q9967; XXXXX

== ENCOUNTER 2019-02-27 16:20 | Inpatient (IN) ==
[2019-02-27] MEDS ORDERED: NS 1,000 ML IV ONE (17:12)
[2019-02-27] MEDS ORDERED: M.V.I.-12 10 ML, FOLIC ACID 1 MG, MAGNESIUM SULFATE 1 GM, THIAMINE 100 MG in NS 1,000 ML IV ONE (17:16)
--- NOTE | 2019-02-27 17:39 | Diag Imaging Result Doc PS360 ---
EXAM: CHEST-1 VIEW INDICATION: cough TECHNIQUE: One view COMPARISON: 02/07/2019 FINDINGS: There is a stable right chest port. There is a large left pleural effusion that is slightly larger than the previous study. It is opacifying all but the left lung apex. There is increased central vasculature indicating pulmonary venous congestion. There is interstitial thickening indicating mild pulmonary edema. The cardiac silhouette is prominent but stable. There are bulky calcified mediastinal lymph nodes on the right indicating prior granulomatous disease, stable. IMPRESSION: Pulmonary venous congestion and interstitial edema with a large left effusion as described. Electronically signed by Ricky Chavez 02/27/2019 5:37 PM
[2019-02-27 18:20] LABS: HEMATOCRIT 26.4 % (37.0-47.0); HEMOGLOBIN 7.9 g/dL (12.0-16.0); IMM GRAN# 0.07 X1000 (0.0-0.04); IMM GRAN% 0.9 % (0.0-0.5); LYMPH# 0.34 X1000 (1.2-3.4); LYMPH% 4.2 % (20.5-51.1); MCH 31.3 PG (27-31); MCHC 29.9 g/dL (33-37); MCV 104.8 FL (81-99); MONO# 0.38 X1000 (0.11-0.59); MONO% 4.7 % (1.7-9.3); NEUT# 7.31 X1000 (1.4-6.5); NEUT% 90.2 % (42.2-75.2); PLT 249 X1000 (130-400); RBC 2.52 XMIL (4.2-5.4); RDW 15.8 % (11.5-14.5)
[2019-02-27 18:45] LABS: ALB/GLOB RATIO 1.5; ALBUMIN 3.5 g/dL (3.5-5.0); CALCIUM 8.7 mg/dL (8.8-10.2); CREATININE 1.7 mg/dL (0.5-0.9); TOTAL BILIRUBIN 0.29 mg/dL (0.20-1.00); TOTAL PROTEIN 5.8 g/dL (6.3-8.3)
--- NOTE | 2019-02-27 19:01 | PROVIDER DOCUMENTATION ---
This chart was entered by Rianna Jimenez Scribe, acting as scribe for Supa Hart MD. HPI-General Adult - General Source: patient - History of Present Illness -Gen Adult Nature of Presenting Problems: 58 y/o female with history of breast CA, DM, and hypertension presents to the ED with complaint of SOB, dry cough, generalized weakness, and poor po intake over the past week. The patient states she has not been eating due to difficulty swallowing. Family states the patient was diagnosed and treated for pneumonia approximately two weeks ago. NKDA. Location of Pain/Injury: reports: generalized Onset/Duration: reports: 1 week ago Timing: reports: still present Associated Symptoms: reports: cough (dry), other (difficulty swallowing, poor po intake, weakness, SOB) Similar Symptoms Previously?: No Recently seen or treated by another doctor?: Yes (PCP, Dr. Omalley, Friday) <Supa Hart - Last Filed: 02/27/19 19:00> <Tyesha Nieves - Last Filed: 02/27/19 20:07> - General Chief Complaint: Weakness Stated Complaint: WEAKNESS,LT SIDE PAIN,POSS DEHYDRATED Time Seen by Provider: 02/27/19 17:09 Allergies/Adverse Reactions: Patient Allergies Allergy/AdvReac Type Severity Reaction Status Date / Time No Known Allergies Allergy Verified 10/04/18 10:42 Home Medications: Home Medication List Medication Instructions Recorded Confirmed Last Taken Type Metformin HCl [Metformin ER 1,000 mg PO BID 01/31/16 02/07/19 10/04/18 History Osmotic] Gabapentin 2 cap PO QHS 07/10/17 02/07/19 10/04/18 History Ondansetron [Zofran] 8 mg PO Q8H PRN PRN 07/10/17 02/07/19 10/04/18 History Bisacodyl 10 mg RC DAILY PRN 12/08/18 02/07/19 Unknown History Dexamethasone 1 tab PO DAILY 12/08/18 02/08/19 Unknown History Fentanyl 100 Microgm/Hr Patch 2 patch TOP Q3DAYS 12/08/18 02/07/19 Unknown History [Duragesic 100 Microgm/Hr Patch] Fentanyl 50 Microgm/Hr Patch 1 ea TD Q72H 12/08/18 02/07/19 Unknown History [Duragesic 50 Microgm/Hr Patch] Morphine 0.25 - 1 ml PO Q2H PRN PRN 12/08/18 02/07/19 Unknown History Prochlorperazine [Compazine] 10 mg PO Q6H PRN PRN 12/08/18 02/07/19 Unknown History Sennosides/Docusate Sodium 2 tab PO BID 12/08/18 02/07/19 Unknown History [Senna-S Laxative Tablet] Alprazolam 0.25 mg PO TID PRN PRN 02/07/19 02/07/19 Unknown History Citalopram Hydrobromide 10 mg PO DAILY 02/07/19 02/07/19 Unknown History [Citalopram HBr] Apixaban [Eliquis] 5 mg PO BID 30 Days #60 tab 02/11/19 Unknown Rx Levofloxacin [Levaquin] 750 mg PO Q24H #5 tab 02/11/19 Unknown Rx Polyethylene Glycol 3350 [Miralax] 17 gm PO BID #120 powder, packet 02/11/19 Unknown Rx Review of Systems - Adult - REVIEW OF SYSTEMS - ADULT Constitutional: reports: no symptoms reported Eyes: reports: no symptoms reported Ears, Nose, Mouth & Throat: reports: no symptoms reported Cardiovascular: reports: no symptoms reported Respiratory: reports: cough (dry), shortness of breath. denies: hemoptysis Gastrointestinal: reports: difficulty swallowing. denies: diarrhea, nausea, vomiting Genitourinary: reports: no symptoms reported Musculoskeletal: reports: no symptoms reported Integumentary: reports: no symptoms reported Neurological: reports: other (generalized weakness). denies: dizziness/vertigo, headache/migraines, slurred speech, syncope Psychiatric: reports: no symptoms reported Endocrine: reports: no symptoms reported Hematologic/Lymphatic: reports: no symptoms reported Allergic/Immunologic: reports: no symptoms reported All Other Systems: Reviewed and Negative <Supa Hart - Last Filed: 02/27/19 19:00> Past History - Adult - PAST MEDICAL HISTORY-ADULT Review of Records: reports: Old Records Reviewed, Nursing Assessment Review, Medications Reviewed Cardiovascular: reports: HTN Endocrine/Immune: reports: Diabetes Other Conditions: reports: other (breast cancer) - IMMUNIZATION STATUS Childhood Immunizations: See Nurse Assessment Flu Vaccine: See Nurse Assessment - SOCIAL HISTORY Smoking: non-smoker Substance Use: none/never Alcohol Use Frequency: never Living Situation: family <Supa Hart - Last Filed: 02/27/19 19:00> Physical Exam-General - PHYSICAL EXAM-ADULT Initial Vital Signs Reviewed: Yes - CONSTITUTIONAL General Appearance: alert, thin. negative: appears well - EYES Eyes: PERRL/EOMI - HEAD, EARS, NOSE, MOUTH & THROAT HENMT: normocephalic/atraumatic, other (dry mucous membranes). negative: moist mucous membranes - NECK Neck: full range of motion, supple - RESPIRATORY Respiratory: decreased breath sounds (left), other (tender right chest wall) - CARDIOVASCULAR Cardiovascular: no gallop, no JVD, tachycardia - GASTROINTESTINAL (ABDOMEN) Abdominal Exam: soft, tenderness (LUQ). negative: distended - MUSCULOSKELETAL Extremity: normal range of motion, normal gait - SKIN Integumentary: normal color, warm/dry - NEUROLOGIC Neurologic: grossly normal <Supa Hart - Last Filed: 02/27/19 19:00> Progress - PLAN OF CARE/RESULTS Progress/Plan/Lab Results: Vital Signs - 8 hr 02/27/19 16:24 Pulse Rate 107 H Respiratory Rate 18 Blood Pressure 93/60 O2 Sat by Pulse Oximetry 93 L Orders Category Date Time Status ED: Orthostatic Vital Signs (E as directed Care 02/27/19 17:12 Active cxr [CHEST-1 VIEW] [RAD] Stat Exams 02/27/19 17:10 Ordered CBC WITH ELECTRONIC DIFF [HEME] Stat Lab 02/27/19 17:10 Uncollected COMPREHENSIVE METABOLIC PANEL [CHEM] Stat Lab 02/27/19 17:10 Uncollected URINALYSIS [URINALYSIS] Stat Lab 02/27/19 17:10 Uncollected 0.9% Sodium Chloride Inj [Ns] 1,000 ml Med 02/27/19 17:12 Active IV 999 mls/hr EKG [EKG] Stat Ther 02/27/19 17:10 Ordered Result Diagrams: 02/27/19 16:44 02/27/19 16:44 - EKG 1 Time of EKG reading by physician:: 16:35 EKG Read and Signed by:: Supa Hart EKG Interpretation (*Must complete 3 of following elements*): Abnormal Rate: 107 Rhythm: sinus tachycardia Comments: nonspecific T wave abnormality - CHANGE OF SHIFT REPORT (ED Provider) 1 Report Given and Care Transferred to:: Dr Nieves Time of Transfer: 19:00 Items Pending: Labs, XRAY Results <Supa Hart - Last Filed: 02/27/19 19:00> - PLAN OF CARE/RESULTS Progress/Plan/Lab Results: Vital Signs - 8 hr 02/27/19 16:24 Pulse Rate 107 H Respiratory Rate 18 Blood Pressure 93/60 O2 Sat by Pulse Oximetry 93 L Laboratory Results - last 24 hr 02/27/19 02/27/19 02/27/19 16:44 16:44 16:44 WBC 8.10 RBC 2.52 L Hgb 7.9 L Hct 26.4 L MCV 104.8 H MCH 31.3 H MCHC 29.9 L RDW Std Deviation 15.8 H Plt Count 249 MPV 9.0 Immature Gran % (Auto) 0.9 H Neut % (Auto) 90.2 H Lymph % (Auto) 4.2 L [place] % (Auto) 4.7 Eos % (Auto) 0.0 Baso % (Auto) 0.0 Immature Gran # (Auto) 0.07 H Neut # (Auto) 7.31 H Lymph # (Auto) 0.34 L [place] # (Auto) 0.38 Eos # (Auto) 0.00 Baso # (Auto) 0.00 Sodium 138 Potassium 4.0 Chloride 98 Carbon Dioxide 22 L Anion Gap 18 BUN 24 H Creatinine 1.7 H Estimated GFR/1.73 m2 37 BUN/Creatinine Ratio 14 Glucose 84 Calculated Osmolality 279 Calcium 8.7 L Total Bilirubin 0.29 AST 23 ALT 24 Alkaline Phosphatase 75 Troponin T < 0.010 Total Protein 5.8 L Albumin 3.5 Globulin 2.3 Albumin/Globulin Ratio 1.5 Orders Category Date Time Status ED: Orthostatic Vital Signs (E as directed Care 02/27/19 17:12 Active cxr [CHEST-1 VIEW] [RAD] Stat Exams 02/27/19 17:10 Completed CBC WITH ELECTRONIC DIFF [HEME] Stat Lab 02/27/19 16:44 Completed COMPREHENSIVE METABOLIC PANEL [CHEM] Stat Lab 02/27/19 16:44 Completed TROPONIN T Stat Lab 02/27/19 16:44 Completed URINALYSIS [URINALYSIS] Stat Lab 02/27/19 17:10 Uncollected 0.9% Sodium Chloride Inj [Ns] 1,000 ml Med 02/27/19 17:12 Discontinued IV 999 mls/hr Mvi [M.v.i.-12] 10 ml Med 02/27/19 17:16 Discontinued Folic Acid 1 mg Magnesium Sulfate 1 gm Thiamine 100 mg 0.9% Sodium Chloride Inj [Ns] 1,000 ml IV NOW EKG [EKG] Stat Ther 02/27/19 17:10 Ordered Result Diagrams: 02/27/19 16:44 02/27/19 16:44 - REASSESSMENT Reassessment #1 Status: other (Pt signed out to me by Dr. Hart pending lab results and admission for her pleural effusion. Pt with marked anemia but within her baseline. Will Admit for further evaluation and treatment. Discussed case with Dr Hernandez, Hospitalist, who will see and admit pt.) <Tyesha Nieves - Last Filed: 02/27/19 20:07> Departure - Departure Date of Disposition Decision: 02/27/19 - Critical Care Note This patient required my direct & personal management of CC.: No <Supa Hart - Last Filed: 02/27/19 19:00> - Departure Time of Disposition Decision: 20:06 Certified Medical Emergency: Emergent <Tyesha Nieves - Last Filed: 02/27/19 20:07> - Departure DIAGNOSIS: Pleural effusion Breast cancer Qualifiers: Breast location: unspecified site of breast Estrogen receptor status: unspeci fied Patient sex: female Laterality: unspecified laterality Qualified Code(s): C50.919 - Malignant neoplasm of unspecified site of unspecified female breast Disposition: ADMITTED INPATIENT 09 Condition: Fair Attestation - Physician/ SOFYA Attestation Patient care was provided by Advanced Practice Provider:: No The physician spent face to face time with patient:: Yes Advanced Practice Provider documentation review:: Supervising physician onsite and consulted in the evaluation and care of this patient. The physician did have a face to face encounter with the patient. <Supa Hart - Last Filed: 02/27/19 19:00> This chart was documented by the indicated scribe, (Jimenez,Rianna D., Scribe) and accurately reflects the services I performed and decisions made by me, Supa Hart MD, as attested by the provider's signature.
--- NOTE | 2019-02-27 22:04 | HISTORY AND PHYSICAL ---
PRIMARY CARE PHYSICIAN: Dr. Lee. CHIEF COMPLAINT: Shortness of breath for 2 weeks. HISTORY OF PRESENTING ILLNESS: A 58-year-old female with a history of breast cancer, diabetes mellitus type 2, hypertension and hyperlipidemia who presents to emergency department with 2 weeks history of progressive worsening shortness of breath. The patient states that over the past several days she was having worsening difficulty breathing and her symptoms were not improving. Patient presented to emergency department. She had imaging done which did show a large left pleural effusion. Due to her presenting symptoms she will require admission for further management. At the time of my examination patient denied any headache, fever, chills, chest pain, hemoptysis, but complained of shortness of breath. PAST MEDICAL HISTORY: Includes breast cancer, diabetes mellitus type 2, hypertension, hyperlipidemia, DVT. PAST SURGICAL HISTORY: Bilateral mastectomy, lumbar laminectomy. ALLERGIES: No known drug allergies. CURRENT MEDICATIONS: Xanax 0.25 mg p.o. t.i.d., Eliquis 5 mg p.o. b.i.d., citalopram 10 mg p.o. daily, dexamethasone 1 mg p.o. daily, fentanyl patch 100 mcg topical every 3 days, gabapentin 300 mg 2 tabs at bedtime, metformin 1000 mg p.o. b.i.d., morphine 0.25 mg 1 p.o. q.2 hours. SOCIAL HISTORY: No history of smoking, alcohol or illicit drug use. FAMILY HISTORY: No history of coronary disease. REVIEW OF SYSTEMS: Fourteen point review of system as listed in HPI. Other systems negative. PHYSICAL EXAMINATION: GENERAL: Cooperative, friendly female, she is resting more comfortably now. VITAL SIGNS: Pulse 107, respiration 18, blood pressure 92/60. HEENT: Atraumatic, normocephalic. Extraocular movements intact. PERRLA. NECK: No masses. CHEST: Rales. CARDIOVASCULAR: Regular rate and rhythm. ABDOMEN: Soft, positive bowel sounds. EXTREMITIES: No edema. NEURO: She is awake, alert, oriented x3. : No bladder distention. SKIN: Warm. LABORATORIES AND STUDIES: WBCs 8.10, hemoglobin 7.9, hematocrit 26.4, platelets 249,000. Sodium 138, potassium 4.0, chloride 98, CO2 22, BUN is 24, creatinine is 1.4, glucose is 84. Chest x- ray shows large left effusion. ASSESSMENT: 58-year-old female with a history of breast cancer, diabetes mellitus type 2, hypertension, hyperlipidemia, who had presented to emergency department 2 weeks history of progressive worsening shortness of breath. She was evaluated the emergency department. She had imaging done which did show a large left pleural effusion. Due to her presenting symptoms she will require admission for further management. 1. Large left pleural effusion. 2. Breast cancer. 3. Diabetes mellitus type 2. 4. Hypertension. 5. Anemia related to malignancy. 6. Renal insufficiency. PLAN: 1. We will admit patient to medical floor with telemetry. 2. We will keep patient NPO after midnight. 3. We will schedule for ultrasound guided thoracentesis. 4. We will consult her oncologist. 5. Monitor blood glucose and put patient on sliding scale insulin regimen. 6. We will monitor her blood pressure closely. 7. We will monitor hemoglobin and hematocrit. 8. Monitor renal function. 9. The patient is on Eliquis already and this is suffice for DVT prophylaxis. 10. We will continue to follow and reassess. Make further recommendation based on patient's clinical course. cc: Solomon Hernandez MD
[2019-02-27] MEDS ORDERED: ZOFRAN IV PRN (23:10)
[2019-02-28] MEDS: ROBITUSSIN PO PRN (01:16)
[2019-02-28] MEDS ORDERED: NS 1,000 ML ONE (01:16)
[2019-02-28] MEDS ORDERED: ROBITUSSIN-AC ONE (01:16)
[2019-02-28 01:22] LABS: URINE SOURCE CLEAN CATCH
[2019-02-28 01:35] LABS: BILIRUBIN URINE NEGATIVE (NEGATIVE); BLOOD URINE NEGATIVE (NEGATIVE); COLOR YELLOW; GLUCOSE URINE NEGATIVE (NEGATIVE); KETONE URINE NEGATIVE (NEGATIVE); LEUKOCYTES URINE NEGATIVE (NEGATIVE); NITRITE URINE NEGATIVE (NEGATIVE); PH URINE 5.5; PROTEIN URINE TRACE mg/dL (NEGATIVE); TURBIDITY URINE CLEAR (CLEAR); UROBILINOGEN URINE NORMAL (NORMAL)
[2019-02-28 01:54] LABS: UR EPITHELIAL CELLS <10 /HPF (<10); URINE BACTERIA NEGATIVE /HPF; URINE RBC <10 /HPF (<10); URINE WBC <10 /HPF (<10)
[2019-02-28 02:11] LABS: URINE CASTS NONE SEEN; URINE CRYSTALS NONE SEEN; URINE SMALL ROUND CELLS TRANS PRESENT; URINE YEAST NONE SEEN
[2019-02-28 06:01] LABS: HEMATOCRIT 24.1 % (37.0-47.0); HEMOGLOBIN 7.1 g/dL (12.0-16.0); IMM GRAN# 0.06 X1000 (0.0-0.04); LYMPH# 0.33 X1000 (1.2-3.4); LYMPH% 5.3 % (20.5-51.1); MCH 30.9 PG (27-31); MCHC 29.5 g/dL (33-37); MCV 104.8 FL (81-99); MONO# 0.23 X1000 (0.11-0.59); MONO% 3.7 % (1.7-9.3); MPV 9.1 FL (7.4-10.4); NEUT# 5.57 X1000 (1.4-6.5); PLT 215 X1000 (130-400); RDW 16.2 % (11.5-14.5); WBC 6.19 X1000 (4.8-10.8)
[2019-02-28 06:08] LABS: CALCIUM 8.2 mg/dL (8.8-10.2); CREATININE 1.4 mg/dL (0.5-0.9); POTASSIUM 3.2 mmol/L (3.5-5.1)
[2019-02-28] MEDS: HUMULIN R SUBQ SCH ×3 (06:51→18:16)
[2019-02-28] MEDS ORDERED: COMPAZINE PO PRN (08:22)
[2019-02-28] MEDS ORDERED: XANAX PO PRN (08:22)
[2019-02-28] MEDS ORDERED: DURAGESIC 100 MICROGM/HR PATCH TD SCH (09:30)
[2019-02-28] MEDS: CELEXA PO SCH (09:55)
[2019-02-28] MEDS: ELIQUIS PO SCH ×2 (09:55→15:06)
[2019-02-28] MEDS: MIRALAX PO SCH ×2 (09:56→20:33)
[2019-02-28] MEDS: DILAUDID IV PRN ×3 (10:17→18:36)
--- NOTE | 2019-02-28 15:01 | PROGRESS NOTE ---
DATE: 02/28/2019 INTERVAL HISTORY: The patient is still with some dyspnea with minimal exertion but relatively comfortable at rest. Numerous diffuse aches and pains which were largely stable. Continues to deny fever or chills. REVIEW OF SYSTEMS: A 12 point review of systems is negative except as per interval history. LABS: WBCs 6.1, hemoglobin 7.1, hematocrit 24.1, platelets 215,000. Sodium 144, potassium 3.2, BUN 23, creatinine 1.4. Urinalysis unremarkable. IMAGING: Chest x-ray with large left pulmonary effusion. VITALS: T-max 98.5 degrees, pulse 92, respirations 17, blood pressure 102/56, O2 saturation 100% on 4 L by nasal cannula. PHYSICAL EXAMINATION: General: No acute distress. Chronically ill-appearing. Appears much older than stated age. Vitals: As above. HEENT: Normocephalic and atraumatic. Slightly dry mucous membranes. No cervical adenopathy. Cardiovascular: Minimally tachycardic but regular. Pulmonary: Significantly decreased at left base. Otherwise largely clear. Abdomen: Soft, nontender, nondistended. Bowel sounds decreased but present. Chest wall: Patient with bilateral mastectomy. Surgical scars appeared healed but has numerous nodularities, some of which with some serous drainage. No fluctuance or induration that I can identify to suggest a fluid pocket. Extremities: Peripheral pulses decreased but intact. No clubbing or cyanosis. Neurologic: Cranial nerves grossly intact. Significant global weakness but no focal deficits identified. Psychiatric: Awake, alert, oriented x3. Cooperative. Skin: Chest wall nodularity as above. ASSESSMENT AND PLAN: 1. Dyspnea, large left pleural effusion. Likely malignant effusion. Setting up for a thoracentesis tomorrow morning. Suspect this will significantly improve the patient's symptoms. 2. Breast cancer with diffuse metastasis. Likely the cause of her effusion. 3. Diabetes mellitus. Patient is diabetic by history but glucose has been normal here. Strongly suspect that she is diet-controlled at this point. She has had significant weight loss. 4. Acute kidney injury. Patient with a baseline creatinine of 0.5. Creatinine of 1.7 on admission. Trending down with intravenous fluids to 1.4. Continue fluids and monitor. 5. Hypokalemia. We will replete and monitor. 6. Hypertension. The patient is hypertensive by history but blood pressure has been low-normal here. We will monitor and add antihypertensives if necessary. 7. Anemia. No signs or symptoms of bleeding. Likely anemia of chronic disease related to her malignancy but we will monitor and transfuse if needed. 8. Chronic pain. Patient with significant pain issues related to her metastatic cancer. Relatively stable on her home dose of fentanyl patches, two 100 mcg patches at a time. Gabapentin. Dilaudid available here if she needs it. Patient is on a Dilaudid pump at home. 9. Skin changes on the chest, likely related to either radiation changes or from her metastatic malignancy. No clear sign of infection at this point but monitor closely. 10. Recent deep venous thrombosis. Patient is on Eliquis. We will continue that. 11. Dysphagia. Patient complaining of some mild dysphagia to solids but not liquids. Suspect she has esophageal stenosis related to her radiation therapy. Discussed with patient and her son. They are reluctant to put her through another procedure at this time as her symptoms are fairly mild at this point. Discussed that if they desired to, that esophagogastroduodenoscopy would be the next step if they decide they want to pursue that. Doing okay with food so far here.
[2019-02-28] MEDS: DECADRON PO SCH (15:06)
[2019-02-28] MEDS ORDERED: TYLENOL PO PRN (20:12)
[2019-02-28] MEDS ORDERED: NEURONTIN PO SCH (21:00)
[2019-03-01] MEDS: ROBITUSSIN PO PRN (03:25)
[2019-03-01] MEDS: HUMULIN R SUBQ SCH ×4 (04:59→16:00)
[2019-03-01] MEDS: ELIQUIS PO SCH ×2 (04:59→10:12)
[2019-03-01 05:59] LABS: INR 1.46; PROTIME 18.9 Seconds (11.0-16.0); PTT 33.5 Seconds (22.3-41.8)
[2019-03-01 06:04] LABS: HEMATOCRIT 24.7 % (37.0-47.0); HEMOGLOBIN 7.4 g/dL (12.0-16.0); MCH 31.4 PG (27-31); MCV 104.7 FL (81-99); RBC 2.36 XMIL (4.2-5.4); RDW 16.4 % (11.5-14.5); WBC 8.66 X1000 (4.8-10.8)
[2019-03-01 06:05] LABS: IMM GRAN# 0.07 X1000 (0.0-0.04); IMM GRAN% 0.8 % (0.0-0.5); LYMPH# 0.42 X1000 (1.2-3.4); LYMPH% 4.8 % (20.5-51.1); MONO# 0.34 X1000 (0.11-0.59); MONO% 3.9 % (1.7-9.3); NEUT# 7.83 X1000 (1.4-6.5); NEUT% 90.5 % (42.2-75.2); PLT 232 X1000 (130-400)
[2019-03-01 06:17] LABS: CALCIUM 8.5 mg/dL (8.8-10.2); CREATININE 1.4 mg/dL (0.5-0.9); POTASSIUM 3.9 mmol/L (3.5-5.1)
--- NOTE | 2019-03-01 08:28 | EKG Report ---
Test Performed on : 02/27/2019 4:35:13 PM Test Reason : weakness Blood Pressure : / mmHG Vent. Rate : 107 BPM Atrial Rate : 107 BPM P-R Int : 116 ms QRS Dur : 058 ms QT Int : 300 ms P-R-T Axes : 044 017 055 degrees QTc Int : 400 ms Sinus tachycardia. Nonspecific T wave abnormality Abnormal ECG When compared with ECG of 02-DEC-2018 07:00, premature atrial complexes. are no longer present ST no longer elevated in Inferior leads ST no longer elevated in Lateral leads Nonspecific T wave abnormality now evident in Lateral leads Unconfirmed Result
[2019-03-01] MEDS: MIRALAX PO SCH (09:32)
[2019-03-01] MEDS: CELEXA PO SCH (09:32)
[2019-03-01] MEDS: DECADRON PO SCH (09:32)
[2019-03-01] MEDS: DILAUDID IV PRN ×3 (10:15→16:06)
[2019-03-01 15:07] LABS: TOTAL PROTEIN 5.9 g/dL (6.3-8.3)
--- NOTE | 2019-03-01 15:47 | Diag Imaging Result Doc PS360 ---
EXAM: US CHEST W/O MEDIASTINUM(LTD) INDICATION: Large left pleural effusion TECHNIQUE: COMPARISON: 11/27/2018 FINDINGS: Note that this was ordered as a left side ultrasound-guided thoracentesis. However, a preprocedural scan showed that the left pleural space was almost completely filled with tumor rather than fluid. There was only a small amount of fluid, which was very complex containing numerous internal septations. As such, the procedure was deferred. IMPRESSION: Extensive left pleural metastatic disease with very little complex fluid in the left pleural space as described. Electronically signed by Ricky Chavez 03/01/2019 3:44 PM
[2019-03-01 15:58] VITALS: BP 106/64
[2019-03-01] MEDS ORDERED: MORPHINE IV ONE (17:40)
--- NOTE | 2019-03-01 18:02 | PROGRESS NOTE ---
DATE: 03/01/2019 INTERVAL HISTORY: Patient still with dyspnea with exertion. Fairly comfortable at rest. Pain well controlled. She went down for thoracentesis of large left pleural effusion this morning. However, when they looked at it on the ultrasound, she had extensive pleural metastasis with very little complex fluid. The left pleural space was almost completely filled with tumor. They were unable to find any pocket of fluid significant enough to drain. Discussed with family and patient the results. Oncology has reported that they please patient is too weak to pursue any salvage chemotherapy. Tentative plan is for patient to go back home with hospice in the morning. REVIEW OF SYSTEMS: A 12 point review of systems is negative except as per interval history. LABS: WBC 8.6, hemoglobin 7.4, hematocrit 24.7. Basic metabolic panel unremarkable aside from BUN 24, creatinine 1.4. VITAL SIGNS: T-max 98.4 degrees, pulse 96, respirations 20, blood pressure 106/64, O2 saturation 99% on 4 L by nasal cannula. PHYSICAL EXAMINATION: General: No acute distress. Chronically ill-appearing. Appears much older than stated age. Vital signs: As above. HEENT: Normocephalic, atraumatic. Moist mucous membranes. No cervical adenopathy. Cardiovascular: Regular rate and rhythm. No murmurs noted. Pulmonary: Significantly decreased at left base to the mid lung, otherwise largely clear. Abdomen: Soft, nontender,nondistended. Bowel sounds positive. Chest wall: Patient with bilateral mastectomy surgical scars here but numerous nodularities, some of which with some serous drainage. No fluctuance, induration, or erythema. Extremities: Peripheral pulses decreased but intact. No clubbing or cyanosis. Neurologic: Cranial nerves grossly intact. Significant global weakness but no focal deficits identified. Psychiatric: Awake, alert, oriented x3. Cooperative. Skin: Chest wall nodularity as above. No new lesions noted. ASSESSMENT AND PLAN: 1. Dyspnea, left pleural effusion. Suspected malignant effusion but on evaluation by ultrasound, it appears to be largely malignancy. Treatment options, likely none. Monitor oxygenation overnight to see if her home O2 needs to be adjusted and plan for discharge home with hospice tomorrow, once arrangements have been made. 2. Breast cancer with diffuse metastasis, extensive pleural disease as above. Prognosis likely grim. 3. Diabetes mellitus. Appears to be diet controlled at this possible. 4. Possible acute kidney injury. Patient with baseline creatinine appears to be 1.0, 1.7 on admission. Improved to 1.4 with fluids but has been stable since then. May be patient's new baseline. Continue fluids 1 more night to see if kidney function will improve. 5. Hypokalemia, improved status post repletion. Monitor. 6. Hypertension. Blood pressure low normal here off medications. Will monitor. 7. Anemia. Likely anemia of chronic disease, stable. 8. Chronic pain. Reasonably well controlled. Continue fentanyl patches, gabapentin, Dilaudid available if needed. Patient on Dilaudid pump at home. 9. Skin changes on the skin, likely malignancy versus radiation changes. No clear sign of infection. 10. Recent deep vein thrombosis. Patient on Eliquis. Will continue that. 11. Dysphagia. Patient is complaining of some mild dysphagia to solids on admission. Suspect esophageal stenosis related to radiation therapy versus direct malignancy affect. Discussed with patient and her son. They were reluctant to put her through another procedure at this time and symptoms are fairly mild. Discussed that if they wanted to pursue further workup that EGD with Gastroenterology would be the next step.
--- NOTE | 2019-03-02 18:25 | HEMO/ONC CONSULTATION ---
DATE: 03/01/2019 REQUESTING: Hospitalist service. REASON FOR CONSULTATION: Metastatic breast cancer, patient known. HISTORY OF PRESENT ILLNESS: Ms. Kiya Lee is an unfortunate 58-year-old female who has a history of metastatic breast cancer, who presented to the emergency department complaining of increased shortness of breath. The patient was actually evaluated in our office on 02/22/2019, for consideration to begin a new chemoimmunotherapy regimen. However, at that time, she had a poor performance status and was not able to get treatment. Her last actual chemotherapy was back in September 2018. She has been on and off of hospice since that time. It looks like though she came complaining of progressive worsening shortness of breath. She was found to have a large left pleural effusion, and has now been admitted for further treatment and close monitoring. The patient reports currently that her pain is well managed. PAST MEDICAL HISTORY: 1. Metastatic breast cancer, with metastasis to lung, brain, and liver. She has received, in the past, several lines of chemotherapy as well as radiation, most recently radiation to her brain. Her last chemotherapy was 10/21/2018. There were plans to try to initiate chemoimmunotherapy last week, but her performance status was too low to initiate treatment. 2. Hyperlipidemia. 3. Hypertension. 4. Diabetes mellitus. 5. History of acute DVT, currently on Eliquis. 6. Arthritis. PAST SURGICAL HISTORY: 1. Status post lumbar laminectomy in 2010. 2. Status post bilateral mastectomies. 3. Status post port placement. SOCIAL HISTORY: Patient lives with her . She has 4 children. She has a supportive family. She denies any tobacco, alcohol, or illicit drug use. FAMILY HISTORY: Negative for cancer. REVIEW OF SYSTEMS: A 12 point review of systems has been completed and is negative except for what is expressed in the HPI. PHYSICAL EXAMINATION: Vital Signs: Temperature 98.0 degrees, heart rate 82, respirations 18, blood pressure 100/56, O2 saturation 100% on 5 L nasal cannula. General: This is a cachectic female lying in the hospital bed in no acute distress. Head: Normocephalic, atraumatic. Eyes: Pupils equal, round, and reactive. Ears, Nose, Throat, Neck, Mouth: Oral mucosa is normal. Gross auditory acuity is intact. Cardiovascular: S1, S2 heard. Respiratory: Coarse breath sounds throughout. Patient has pretty much no breath sounds in her lower bases, especially on the left. Gastrointestinal: Abdomen is soft with positive bowel sounds. Musculoskeletal: She has muscle wasting, but no bony abnormalities. Extremities: Some trace bilateral extremity edema. Neurologic: Patient is a little bit lethargic, but is arousable and able to answer questions. LABS AND STUDIES: White blood cells 8.66, hemoglobin 7.4, hematocrit 24.7, platelet count 232,000. Sodium 141, potassium 3.9, chloride 103, CO2 25, BUN 24, creatinine 1.4, glucose 96. Chest x-ray shows pulmonary venous congestion and interstitial edema with a large left effusion. ASSESSMENT AND PLAN: 1. Metastatic breast cancer. Patient is heavily pretreated and has received several lines of therapy. We have recommended to the patient hospice previously. She has been on and off hospice since about the September/October timeframe. She was doing okay the last time she was in the hospital, and we discussed initiating treatment as an outpatient. However, unfortunately, she was not well enough and had a poor performance status, so was unable to start chemoimmunotherapy last week. No treatment is planned at this time. It seems that her performance status has not improved and, if anything, has maybe worsened since last week. We recommend being discharged back on hospice at this time. 2. Large pleural effusion. I believe the plan is to do a thoracentesis for symptomatic relief, which seems reasonable, and can hopefully be done today. In fact, patient is waiting to go down to get that done at the time of our visit. 3. Pain. Seems to be well managed currently. Continue with current medications. Hospice should be able to manage her pain medications upon discharge. Thank you for consulting us on Ms. Lee while she is at [facility]. We will continue following and adjust our treatment plan per her hospital course. Dictated by DUNG Ibanez for Sofiya Page MD cc: Sofiya Page MD I have seen and examined the patient and agree with the above note which reflects my history, physical examination, assessment and plan. Sofiya MARTINS
[2019-03-03] MEDS ORDERED: DURAGESIC 100 MICROGM/HR PATCH TD SCH (10:00)
--- NOTE | 2019-03-04 12:17 | DISCHARGE SUMMARY ---
ADMISSION DATE: 02/27/2019 DISCHARGE DATE: 03/01/2019 CONSULTS: Oncology, Interventional Radiology. IMAGING: Chest x-ray showing mild pulmonary venous congestion, large left pleural effusion. Ultrasound during attempted paracentesis showing extensive left pleural metastatic disease with almost no fluid. Almost the entire left pleural space was filled with tumor rather than fluid, as was initially thought. DISCHARGE DIAGNOSES: 1. Widely metastatic breast cancer. 2. Diabetes. 3. Hypertension. 4. Hyperlipidemia. 5. Subacute deep venous thrombosis. 6. Dysphagia. 7. Anemia. 8. Hypokalemia. 9. Acute kidney injury. 10. Dyspnea. 11. Chronic hypoxic respiratory failure. 12. Chronic pain. HOSPITAL COURSE: The patient is a 58-year-old female with known widely metastatic breast cancer, diabetes, hypertension, hyperlipidemia, chronic hypoxic respiratory failure on oxygen at home 3 to 4 L. She presented to the hospital with 2 weeks of progressive dyspnea. Initial x-ray suggested a large left pleural effusion, which was felt to be likely related to underlying malignancy. The patient was admitted for thoracentesis. However, when this was attempted, it was found that rather than fluid, almost all of the presumed effusion on her left chest was in fact tumor, with occasional small pockets of fluid included in it. This was not amenable to drainage, so the procedure was canceled. Afterwards, the findings were discussed with the patient and family, and they elected to go back home with hospice. The case was briefly discussed with Oncology. They felt that the patient was too weak to pursue salvage chemotherapy at this time. I suspect that the odds of the patient becoming strong enough to consider salvage chemotherapy are quite low. The patient did have mild acute kidney injury on admission with creatinine of 1.7. With fluids, it did trend down to 1.4. The patient's baseline appears to be fairly normal at 1.0, but the patient and family did not wish to remain in the hospital for additional fluids. It was confirmed that the patient's home oxygen tank had been replaced as this was in need of doing. Confirmed that she had plenty of pain medicine at home, and arranged for the patient to go back home with hospice. DISCHARGE VITAL SIGNS: Temp 97.4 degrees, pulse 96, respirations 20, blood pressure 106/64, O2 saturation 99% on 4 L by nasal cannula. DISCHARGE DIET: Regular. DISCHARGE MEDICATIONS: Gabapentin 600 mg p.o. at bedtime, fentanyl two 100 mcg patches for a total of 200 mcg every 3 days, Xanax 0.25 mg p.o. t.i.d. p.r.n., bisacodyl suppository p.r.n., citalopram 10 mg daily, Compazine 10 mg p.o. every 6 hours p.r.n., dexamethasone 4 mg p.o. daily, Eliquis 5 mg p.o. b.i.d., metformin 1000 mg p.o. b.i.d., senna/docusate 2 tablets p.o. b.i.d., Zofran 8 mg p.o. every 8 hours p.r.n., MiraLAX b.i.d. FOLLOWUP PLAN: Patient discharging home on hospice with continued pain and nausea control. Follow up with PCP and Oncology as desired. PROGNOSIS: Likely grim. TIME SPENT: Greater than 30 minutes were spent counseling the patient and arranging discharge.
== END 2019-03-01 19:00 | disposition hospice, home (50) | DRG 181 ==
LOC: ED 16:20 → 3S 22:06 → SUATTDRO 22:06 → 3S 03-01 10:05
PROVIDERS: ATTEND Internal Medicine
CPT/HCPCS: 71010; 71045; 76604; 80048; 80053; 81001; 82948; 83615; 84155; 84157; 84484; 85025; 85610; 85730; 87070; 87205; 93005; 94761; 96365; 96366; 99285; A9270; J1170; J2270; J2405; J3411; J3475; J7030; J8540; XXXXX